=== PATIENT | female | born 1975 | race Caucasian/White ===

== ENCOUNTER → 2017-01-26 | Outpatient (CLI) | payer BC ==
[~2017-01-26] MED LIST: ALPR1TAB3 PO; CLX20 PO; NITR-5 PO
--- NOTE | 2017-01-30 14:57 | MAMMOGRAPHY REPORT ---
BILATERAL FIRST EVER DIGITAL SCREENING MAMMOGRAM WITH CAD: 01/26/2017 CLINICAL HISTORY: Patient presents for routine screening. S/P bilateral augmentation. TECHNIQUE: Current study was also evaluated with a Computer Aided Detection (CAD) system. Bilatera l CC and MLO views including implant displaced views were obtained. COMPARISON: No prior exams were available for comparison. BREAST COMPOSITION: The tissue of both breasts is heterogeneously dense, which may obscure small ma sses. FINDINGS: No suspicious masses, calcifications, or areas of architectural distortion are noted in e ither breast. Bilateral subpectoral saline implants are noted. IMPRESSION: ACR BI-RADS CATEGORY 1: NEGATIVE There is no mammographic evidence of malignancy. A 1 year screening mammogram is recommended. The p atient will receive written notification of the results. Approximately 10% of breast cancers are not detected with mammography. A negative mammographic repor t should not delay biopsy if a clinically suggestive mass is present. Guillermina Espinal M.D. ah/:01/26/2017 16:05:21 Psychiatric Therapist: Estelle SAMANO(Kunal)(Shania), [facility] letter sent: Normal 1/2 BI-RADS Code: ACR BI-RADS Category 1: Negative
== END | disposition home or self-care (01) ==
LOC: C.MAMM 15:11
PROVIDERS: ATTEND Internal Medicine
DX: Z12.31 Encounter for screening mammogram for malignant neoplasm of breast (principal); Z98.82 Breast implant status

== ENCOUNTER 2019-07-08 12:45 | Observation (INO) ==
[2019-07-08] MEDS ORDERED: SODIUM CHLORIDE 0.9% 1000ML 2,000 ML IV ONE (13:19)
[2019-07-08] MEDS ORDERED: MoRPHine SULFATE 4 MG/ML 1 ML CARP\\VIAL IV STA ×2 (13:19→16:15)
[2019-07-08] MEDS ORDERED: ACETAMINOPHEN 1,000 MG/100 ML VIAL IV STA (13:19)
[2019-07-08] MEDS ORDERED: FAMOTIDINE 20MG/5ML IV PUSH IV STA (13:19)
[2019-07-08] MEDS ORDERED: PROMETHAZINE HCL 6.25 MG in SODIUM CHLORIDE 0.9% 50 ML IV STA ×2 (13:19→16:15)
[2019-07-08] MEDS ORDERED: ONDANSETRON INJ 2 MG/ML 2 ML VIAL IV STA (13:19)
[2019-07-08] MEDS ORDERED: PROMETHAZINE 12.5 MG/50.5 ML NSS IV ONE (13:59)
[2019-07-08 14:04] LABS: Basophils # (auto) 0.03 K/uL (0-0.2); Basophils % (auto) 0.4 %; Eosinophils # (auto) 0.06 K/uL (0-0.5); Eosinophils % (auto) 0.7 %; Hematocrit (blood only) 30.3 % (37-47); Hemoglobin 10.2 g/dL (12.0-16.0); Immature Granulocytes # (auto) 0.01 K/uL (0.00-0.02); Immature Granulocytes % (auto) 0.1 %; Lymphocytes # (auto) 2.28 K/uL (1.2-3.4); Lymphocytes % (auto) 28.4 %; Mean Corpuscular Hemoglobin 28.8 pg (25-34); Mean Corpuscular Hgb Conc 33.7 g/dL (32-36); Mean Corpuscular Volume 85.6 fL (80-100); Mean Platelet Volume 8.7 fL (7.4-10.4); Monocytes # (auto) 0.35 K/uL (0.11-0.59); Monocytes % (auto) 4.4 %; Neutrophils # (auto) 5.31 K/uL (1.4-6.5); Platelet Count 345 K/uL (130-400); RDW Standard Deviation 43.8 fL (36.4-46.3); Red Blood Count 3.54 M/uL (4.2-5.4); White Blood Count 8.04 K/uL (4.8-10.8)
[2019-07-08 14:19] LABS: Albumin Level 3.5 gm/dl (3.4-5.0); BUN Creatinine Ratio 7.7 (10-20); Calcium 9.2 mg/dl (8.5-10.1); Creatinine Clr Calc Pharmacy 86.4 ml/min; Est GFR (African American) 102.4; Est GFR (Non-African American) 88.3; Potassium 3.8 mmol/L (3.5-5.1)
[2019-07-08 14:22] LABS: Albumin Globulin Ratio 0.9 (0.9-2); Bilirubin,Total 0.3 mg/dl (0.2-1); Globulin 4.1 gm/dl (2.5-4.0); Total Protein 7.6 gm/dl (6.4-8.2)
[2019-07-08 14:27] LABS: Appearance Urine Cloudy (Clear); Bacteria Urine Automated 2+ (Negative); Bilirubin Urine Negative (Negative); Blood Urine Negative (Negative); Cast Urine Automated 0 /lpf (0-5); Color Urine Yellow; Epithelial Cell Urine Auto >30 /lpf (0-5); Glucose Urine UA Negative (Negative); Ketones Urine Negative (Negative); Leukocyte Esterase Urine 2+ (Negative); Nitrite Urine Negative (Negative); Protein Urine Negative (Negative); RBC Urine Automated 0-4 /hpf (0-4); Specific Gravity Urine 1.006 (1.000-1.030); Urobilinogen Urine Negative (Negative); pH Urine 8.5 (4.5-7.5)
[2019-07-08 14:41] LABS: Pregnancy Test, Serum Negative (Negative)
[2019-07-08] MEDS ORDERED: IOVERSOL 100ml IV PRN (15:10)
[2019-07-08] MEDS ORDERED: SODIUM CHLORIDE 0.9% 1000ML 500 ML IV ONE (15:16)
--- NOTE | 2019-07-08 15:20 | CT Scan Report ---
CT abd pelvis IV con only CT DOSE: 413.14 mGy.cm HISTORY: Abdominal and pelvic pain poss divertic or colitis TECHNIQUE: Multiaxial CT images of the abdomen and pelvis were performed following the use of intrave nous contrast. A dose lowering technique was utilized adhering to the principles of ALARA. COMPARISON STUDY: 06/17/2018 FINDINGS: Lung bases remain clear. Small hepatic hemangiomas are unaltered. Kidneys enhance uniformly. No evidence for hydronephrosis. Nonobstructive bowel pattern. Several uterine fibroids. Bilateral ovarian cysts. The largest left ova shelby cyst measures 2.3 cm. There are several right ovarian cysts measuring up to 2.7 cm. There is tra ce amount of physiologic free fluid within the pelvis. Bladder is midline. IMPRESSION: 1. Bilateral ovarian cyst. 2. Otherwise negative abdomen and pelvis. 3. Several small uterine fibroids. The above report was generated using voice recognition software. It may contain grammatical, syntax or spelling errors. Electronically signed by: Martín Navarro M.D. 07/08/2019 3:18 PM
[2019-07-08] MEDS ORDERED: PANTOprazole 40 MG TAB PO STA (16:15)
[2019-07-08] MEDS ORDERED: PROMETHAZINE 6.25 MG/50.25 ML NSS IV ONE (16:20)
--- NOTE | 2019-07-08 17:52 | Emergency Department Note ---
Entered by Octavio Capellan acting as a scribe for History of Present Illness General Chief complaint: Dehydration Stated complaint: DEHYDRATION, SEVERE STOMACH PAIN Time Seen by Provider: 07/08/19 12:58 Source: patient History of Present Illness Provider complaint: abdominal pain Onset (ago): day(s) 3 Location: abdomen Radiation: non-radiation Pain Consistency: + constant Maximum Pain Intensity: 8 Relieved By: + none Associated symptoms: + denies other symptoms, + nausea/vomiting and + other (dehydarted, no diarrhea) Treatments prior to arrival: other (Zofran) The patient is a 44 y/o female who presents to the emergency department for evaluation of constant abdominal pain for the past three days. The patient states that she has been nauseated, unable to eat, and aches. She reports that she does not feel like she can eat without vomiting and that if she goes to the restroom she will throw up from the abdominal pain. The patient report she was here 3 days ago with vomiting and diarrhea and was discharged with a possible kidney stone. Since then the patient states that the vomiting and diarrhea are not as bad but the abdominal pain and nausea are much wore. She reports she has only took Zofran at home because she cannot keep anything down and she feels dehydrated. The patient reports she does have a history of kidney stones. The patient denies urinary symptoms, and any other symptoms. Home Medications Home Medications Medication Instructions Recorded Confirmed Type alprazolam 0.5 mg tablet 0.5 mg PO BID PRN #60 tab 06/10/19 07/08/19 Rx ondansetron 4 - 8 mg PO Q8H PRN #14 tab 07/05/19 07/08/19 Rx escitalopram oxalate 10 mg PO QAM 07/08/19 07/08/19 History escitalopram oxalate 20 mg PO QAM 07/08/19 07/08/19 History levothyroxine [Tirosint] 13 mcg PO QAM 07/08/19 07/08/19 History zolpidem 12.5 mg PO DAILY PRN 07/08/19 07/08/19 History Allergies Allergy/AdvReac Type Severity Reaction Status Date / Time Sulfa (Sulfonamide Allergy Severe EYES SWELL Verified 07/08/19 14:28 Antibiotics) Penicillins Allergy Intermediate Hives Verified 07/08/19 14:28 nitrofurantoin AdvReac Intermediate hives Verified 07/08/19 14:28 Past Med/Surg History Medical History Anxiety Hyperglycemia (Resolved) Insomnia (Acute) Nephrolithiasis (Acute) Vitamin B12 deficiency (Acute) Kidney stones Surgical History H/O oral surgery History of lithotripsy Family History Mother Breast cancer Hypertension Dyslipidemia Grandmother (Maternal) Breast cancer Hypertension Dyslipidemia Father Hypertension Kidney stones Grandfather Kidney stones Grandmother (Paternal) Hypertension Dyslipidemia Grandfather (Maternal) Hypertension Dyslipidemia Grandfather (Paternal) Hypertension Dyslipidemia Social History Preferred Language: Swedish Communication Ability: Effective Detective Bureau Chief Required: No Beliefs That Will Affect Care: None Current Living Situation: Spouse Current Living Situation Comment: current occupational status: employed Other Information That Helps Us Care for You: No Feels Safe at Home: Yes Safety Concerns: Feels Safe At This Time Smoking Status: Never smoker Hx Alcohol Use: No Hx Substance Use: No caffeine: Yes Dental Care, Regularly: Yes Seatbelt Use: always Review of Systems See HPI for pertinent positives & negatives. and A total of 10 systems reviewed and were otherwise negative Physical Exam Vital Signs Vital Signs - 24 hr 07/08/19 14:14 07/08/19 15:30 07/08/19 16:04 Pulse Rate [Left Finger] 68 68 68 Respiratory Rate 16 16 16 Respiratory Effort / Characteristics Non-Labored Spontaneous Non-Labored Spontaneous Non-Labored Spontaneous Respiratory Depth Normal Normal Normal Blood Pressure [Left Arm] 128/81 138/83 138/85 Blood Pressure Mean [Left Arm] 96 101 102 Blood Pressure Position [Left Arm] Lying Lying Pulse Oximetry 97 97 97 Oxygen Delivery Method Room Air Room Air 07/08/19 16:38 07/08/19 17:00 07/08/19 17:30 Pulse Rate [Left Finger] 68 66 60 Respiratory Rate 16 16 16 Respiratory Effort / Characteristics Non-Labored Spontaneous Non-Labored Spontaneous Non-Labored Spontaneous Respiratory Depth Normal Normal Normal Blood Pressure [Left Arm] 153/85 H 168/87 H 148/86 H Blood Pressure Mean [Left Arm] 107 114 106 Blood Pressure Position [Left Arm] Lying Lying Lying Pulse Oximetry 99 99 99 Oxygen Delivery Method Room Air Room Air Room Air 07/08/19 18:13 Pulse Rate [Left Finger] 67 Respiratory Rate 16 Respiratory Effort / Characteristics Non-Labored Spontaneous Respiratory Depth Normal Blood Pressure [Left Arm] 138/85 Blood Pressure Mean [Left Arm] 102 Blood Pressure Position [Left Arm] Lying Pulse Oximetry 99 Oxygen Delivery Method Room Air GENERAL: Patient is in no acute distress. HEENT: No acute trauma, normocephalic atraumatic, mucous membranes dry, no nasal congestion, no scleral icterus. NECK: No stridor, no adenopathy, no meningismus, trachea is midline. LUNGS: Clear to auscultation bilaterally, no wheeze, no rhonchi, breath sounds equal. HEART: Without murmurs gallops or rubs, regular rate and rhythm. ABDOMEN: Soft, diffusely moderately tender, bowel sounds positive, no hernias, no peritonitis. EXTREMITIES: No cyanosis or edema, full range of motion of all the joints without pain or difficulty, no signs for acute trauma. NEUROLOGIC: Oriented x 3, no acute motor or sensory deficits, no focal weakness. SKIN: No rash, no jaundice, no diaphoresis. Course 1315: Past medical records reviewed. The patient was evaluated in room A11B. A complete history and physical exam was performed. 1610: A rectal exam as preformed with a female sign artist. Results were hem- negative. She will try to have some isaias julian and crackers. 1700: I spoke with the patient and updated her on her results. The patient did poorly with oral intake. 1705: I spoke Dr. Adams [facility] hospitalist. She will evaluate for further management. Administered Medications Acetaminophen (Tylenol) 650 mg PO Q4H PRN PRN Reason: Pain or Fever Stop: 08/07/19 20:32 Last Admin: 07/08/19 21:08 Dose: 650 mg Documented by: [id number] Escitalopram Oxalate (Lexapro Tab) 10 mg PO QAM [facility] Stop: 08/08/19 08:59 Last Admin: 07/09/19 08:21 Dose: 10 mg Documented by: [id number] Escitalopram Oxalate (Lexapro Tab) 20 mg PO QAM [facility] Stop: 08/08/19 08:59 Last Admin: 07/09/19 08:21 Dose: 20 mg Documented by: [id number] Hydromorphone HCl (Dilaudid) 0.5 mg IV Q3H PRN PRN Reason: Pain Stop: 07/22/19 20:32 Last Admin: 07/08/19 21:08 Dose: 0.5 mg Documented by: [id number] Lactated Ringer's (Lr) 1,000 mls @ 80 mls/hr IV .[id number] ERWIN Stop: 07/09/19 20:59 Last Admin: 07/09/19 08:19 Dose: 80 mls/hr Documented by: [id number] Infusion: 07/09/19 08:15 Dose: 0 mls/hr Documented by: [id number] Infusion: 07/09/19 06:19 Dose: 80 mls/hr Documented by: [id number] Admin: 07/08/19 19:44 Dose: 80 mls/hr Documented by: [id number] Ioversol (Optiray 320 100ml) 93 ml IV ONCE PRN PRN Reason: Interaction Checking Stop: 07/12/19 15:09 Last Admin: 07/08/19 15:10 Dose: 93 ml Documented by: [id number] Ketorolac Tromethamine (Toradol) 15 mg IV Q6H PRN PRN Reason: Pain Stop: 07/13/19 20:34 Last Admin: 07/08/19 23:40 Dose: 15 mg Documented by: [id number] Levothyroxine Sodium (Tirosint) 1 ea PO DAILYBB ERWIN Stop: 08/08/19 10:14 Last Admin: 07/09/19 10:19 Dose: 1 ea Documented by: [id number] Zolpidem Tartrate (Ambien) 10 mg PO DAILY PRN PRN Reason: insomnia Stop: 08/07/19 21:07 Last Admin: 07/08/19 23:42 Dose: 10 mg Documented by: [id number] Discontinued Medications Famotidine (Pepcid 20mg Iv Push) 20 mg IV ONE STA Stop: 07/08/19 13:20 Last Admin: 07/08/19 14:07 Dose: 20 mg Documented by: [id number] Acetaminophen (Ofirmev) 1,000 mg in 100 mls @ 400 mls/hr IV NOW STA Stop: 07/08/19 13:33 Last Infusion: 07/08/19 14:23 Dose: 0 mls/hr Documented by: [id number] Admin: 07/08/19 14:06 Dose: 400 mls/hr Documented by: [id number] Promethazine HCl 6.25 mg/ (Sodium Chloride) 50.25 mls @ 201 mls/hr IV NOW STA Stop: 07/08/19 13:33 Last Infusion: 07/08/19 14:23 Dose: 0 mls/hr Documented by: [id number] Admin: 07/08/19 14:07 Dose: 201 mls/hr Documented by: [id number] Sodium Chloride (Nss 1000ml) 2,000 mls @ 999 mls/hr IV .Q2H1M ONE Stop: 07/08/19 15:19 Last Infusion: 07/08/19 18:14 Dose: 0 mls/hr Documented by: [id number] Admin: 07/08/19 14:08 Dose: 999 mls/hr Documented by: [id number] Sodium Chloride (Nss 1000ml) 500 mls @ 999 mls/hr IV .Q31M ONE Stop: 07/08/19 15:46 Last Infusion: 07/08/19 15:47 Dose: 0 mls/hr Documented by: [id number] Admin: 07/08/19 15:16 Dose: 999 mls/hr Documented by: [id number] Promethazine HCl 6.25 mg/ (Sodium Chloride) 50.25 mls @ 201 mls/hr IV NOW STA Stop: 07/08/19 16:29 Last Admin: 07/08/19 16:23 Dose: Not Given Documented by: [id number] Miscellaneous (Order Awaiting Action) 1 ea N/A QS ERWIN Stop: 08/08/19 00:00 Last Admin: 07/09/19 10:21 Dose: Not Given Documented by: [id number] Admin: 07/08/19 23:41 Dose: Not Given Documented by: [id number] Morphine Sulfate (Morphine Sulfate) 4 mg IV NOW STA Stop: 07/08/19 13:20 Last Admin: 07/08/19 14:07 Dose: 4 mg Documented by: [id number] Morphine Sulfate (Morphine Sulfate) 4 mg IV NOW STA Stop: 07/08/19 16:16 Last Admin: 07/08/19 16:23 Dose: 4 mg Documented by: [id number] Ondansetron HCl (Zofran) 4 mg IV NOW STA Stop: 07/08/19 13:20 Last Admin: 07/08/19 14:07 Dose: 4 mg Documented by: [id number] Pantoprazole Sodium (Protonix) 40 mg PO NOW STA Stop: 07/08/19 16:16 Last Admin: 07/08/19 16:22 Dose: 40 mg Documented by: [id number] Promethazine HCl (Phenergan) Confirm Administered Dose 12.5 mg IV .STK-MED ONE Stop: 07/08/19 14:00 Last Admin: 07/08/19 14:18 Dose: Not Given Documented by: [id number] Promethazine HCl (Phenergan) Confirm Administered Dose 6.25 mg IV .STK-MED ONE Stop: 07/08/19 16:21 Last Admin: 07/08/19 16:23 Dose: 6.25 mg Documented by: [id number] Medical Decision Making Differential Diagnosis Differential diagnosis: Diverticulitis, dehydration, pancreatitis, appendicitis, UTI, electrolyte imbalance, viral illness, food borne illness. Medical Records Attestation: I reviewed the patient's medical records. Home Medications Current Medication List: was personally reviewed by me Laboratory Data Attestation: I reviewed the patient's lab results. Result diagrams: 07/09/19 06:19 07/09/19 06:19 Lab Results 07/08/19 07/08/19 07/08/19 Range/Units 13:53 13:53 13:53 WBC 8.04 (4.8-10.8) K/uL RBC 3.54 L (4.2-5.4) M/uL Hgb 10.2 L (12.0-16.0) g/dL Hct 30.3 L (37-47) % MCV 85.6 (80-100) fL MCH 28.8 (25-34) pg MCHC 33.7 (32-36) g/dL RDW Std Deviation 43.8 (36.4-46.3) fL RDW Coeff of Solo 14.0 (11.5-14.5) % Plt Count 345 (130-400) K/uL MPV 8.7 (7.4-10.4) fL Immature Gran % (Auto) 0.1 % Neut % (Auto) 66.0 % Lymph % (Auto) 28.4 % [place] % (Auto) 4.4 % Eos % (Auto) 0.7 % Baso % (Auto) 0.4 % Immature Gran # (Auto) 0.01 (0.00-0.02) K/uL Neut # (Auto) 5.31 (1.4-6.5) K/uL Lymph # (Auto) 2.28 (1.2-3.4) K/uL [place] # (Auto) 0.35 (0.11-0.59) K/uL Eos # (Auto) 0.06 (0-0.5) K/uL Baso # (Auto) 0.03 (0-0.2) K/uL Sodium 139 (136-145) mmol/L Potassium 3.8 (3.5-5.1) mmol/L Chloride 108 H (98-107) mmol/L Carbon Dioxide 26 (21-32) mmol/L Anion Gap 6.0 (3-11) BUN 6 L (7-18) mg/dl Creatinine 0.81 (0.6-1.2) mg/dl Est Cr Clr Drug Dosing 86.4 ml/min Est GFR ( Amer) 102.4 Est GFR (Non-Af Amer) 88.3 BUN/Creatinine Ratio 7.7 L (10-20) Glucose 97 (70-99) mg/dl Calcium 9.2 (8.5-10.1) mg/dl Total Bilirubin 0.3 (0.2-1) mg/dl AST 23 (15-37) U/L ALT 26 (12-78) U/L Alkaline Phosphatase 121 H (45-117) U/L Total Protein 7.6 (6.4-8.2) gm/dl Albumin 3.5 (3.4-5.0) gm/dl Globulin 4.1 H (2.5-4.0) gm/dl Albumin/Globulin Ratio 0.9 (0.9-2) Lipase 85 (73-393) U/L HCG, Qual Negative (Negative) Urine Color Urine Appearance (Clear) Urine pH (4.5-7.5) Ur Specific [place] (1.000-1.030) Urine Protein (Negative) Urine Glucose (UA) (Negative) Urine Ketones (Negative) Urine Blood (Negative) Urine Nitrite (Negative) Urine Bilirubin (Negative) Urine Urobilinogen (Negative) Ur Leukocyte Esterase (Negative) Urine WBC (Auto) (0-5) /hpf Urine RBC (Auto) (0-4) /hpf U Hyaline Cast (Auto) (0-5) /lpf U Epithel Cells (Auto) (0-5) /lpf Urine Bacteria (Auto) (Negative) 07/08/19 Range/Units 14:00 WBC (4.8-10.8) K/uL RBC (4.2-5.4) M/uL Hgb (12.0-16.0) g/dL Hct (37-47) % MCV (80-100) fL MCH (25-34) pg MCHC (32-36) g/dL RDW Std Deviation (36.4-46.3) fL RDW Coeff of Solo (11.5-14.5) % Plt Count (130-400) K/uL MPV (7.4-10.4) fL Immature Gran % (Auto) % Neut % (Auto) % Lymph % (Auto) % [place] % (Auto) % Eos % (Auto) % Baso % (Auto) % Immature Gran # (Auto) (0.00-0.02) K/uL Neut # (Auto) (1.4-6.5) K/uL Lymph # (Auto) (1.2-3.4) K/uL [place] # (Auto) (0.11-0.59) K/uL Eos # (Auto) (0-0.5) K/uL Baso # (Auto) (0-0.2) K/uL Sodium (136-145) mmol/L Potassium (3.5-5.1) mmol/L Chloride (98-107) mmol/L Carbon Dioxide (21-32) mmol/L Anion Gap (3-11) BUN (7-18) mg/dl Creatinine (0.6-1.2) mg/dl Est Cr Clr Drug Dosing ml/min Est GFR ( Amer) Est GFR (Non-Af Amer) BUN/Creatinine Ratio (10-20) Glucose (70-99) mg/dl Calcium (8.5-10.1) mg/dl Total Bilirubin (0.2-1) mg/dl AST (15-37) U/L ALT (12-78) U/L Alkaline Phosphatase (45-117) U/L Total Protein (6.4-8.2) gm/dl Albumin (3.4-5.0) gm/dl Globulin (2.5-4.0) gm/dl Albumin/Globulin Ratio (0.9-2) Lipase (73-393) U/L HCG, Qual (Negative) Urine Color Yellow Urine Appearance Cloudy A (Clear) Urine pH 8.5 H (4.5-7.5) Ur Specific [place] 1.006 (1.000-1.030) Urine Protein Negative (Negative) Urine Glucose (UA) Negative (Negative) Urine Ketones Negative (Negative) Urine Blood Negative (Negative) Urine Nitrite Negative (Negative) Urine Bilirubin Negative (Negative) Urine Urobilinogen Negative (Negative) Ur Leukocyte Esterase 2+ H (Negative) Urine WBC (Auto) 10-30 H (0-5) /hpf Urine RBC (Auto) 0-4 (0-4) /hpf U Hyaline Cast (Auto) 0 (0-5) /lpf U Epithel Cells (Auto) >30 H (0-5) /lpf Urine Bacteria (Auto) 2+ H (Negative) Imaging Data Radiologist's Impression: Radiology results as stated below per my review and the radiologist's interpretation: CT abd pelvis IV con only CT DOSE: 413.14 mGy.cm HISTORY: Abdominal and pelvic pain poss divertic or colitis TECHNIQUE: Multiaxial CT images of the abdomen and pelvis were performed following the use of intravenous contrast. A dose lowering technique was utilized adhering to the principles of ALARA. COMPARISON STUDY: 06/17/2018 FINDINGS: Lung bases remain clear. Small hepatic hemangiomas are unaltered. Kidneys enhance uniformly. No evidence for hydronephrosis. Nonobstructive bowel pattern. Several uterine fibroids. Bilateral ovarian cysts. The largest left ovarian cyst measures 2.3 cm. There are several right ovarian cysts measuring up to 2.7 cm. There is trace amount of physiologic free fluid within the pelvis. Bladder is midline. IMPRESSION: 1. Bilateral ovarian cyst. 2. Otherwise negative abdomen and pelvis. 3. Several small uterine fibroids. The above report was generated using voice recognition software. It may contain grammatical, syntax or spelling errors. Electronically signed by: Martín Navarro M.D. 07/08/2019 3:18 PM Blood Pressure Blood Pressure Findings: Elevated blood pressure Blood Pressure Disposition: further management by hospitalist [facility] Narrative There is no leukocytosis. The patient is anemic, this is about a two-point drop for her. The cause is unclear. I did perform a rectal exam while here in the ED, the stool seemed heme negative. There was no significant electrolyte abnormality, no evidence for liver enzyme elevation. No evidence for pancreatitis. testing was negative. Urinalysis shows some contamination, no signs of infection. Abdominal and pelvis CT does not show any evidence for diverticulitis or bowel obstruction, no acute surgical process by CT scan. The patient received IV morphine for pain, IV Zofran for nausea. She was given IV Phenergan as well for nausea. She received IV saline, IV Pepcid and IV Tylenol. Patient was given oral Protonix. The patient has been here for several hours. She is still having nausea and epigastric abdominal pain. She did attempt to take something by mouth but did poorly. I do think a hospital stay is warranted. The cause for this entire presentation is unclear. She has though dropped her hemoglobin by 2 points and so, upper GI bleeding and gastritis is a concern. I did speak with the patient, the on-call hospitalist was consulted. Case management has been involved. Impression & Plan Abdominal pain, epigastric, Dehydration, Vomiting, Anemia, Failure of outpatient treatment Discharge Plan Visit Data *Final* Discharge Date/Time: 07/08/19 19:02 Chief Complaint: Dehydration Stated Complaint: DEHYDRATION, SEVERE STOMACH PAIN ED Provider: Scar Fregoso Discharge Problem: Abdominal pain, epigastric, Dehydration, Vomiting, Anemia, Failure of outpatient treatment Patient Disposition: Admitted As Inpatient Discharge Instructions Interventions: ED Discharge Assessment Last Done: 07/08/19 19:02 Discharge Problem: Vomiting Qualifiers: Vomiting type: unspecified Vomiting Intractability: non-intractable Nausea presence: with nausea Qualified Code(s): R11.2 - Nausea with vomiting, unspecified Anemia Qualifiers: Anemia type: unspecified type Qualified Code(s): D64.9 - Anemia, unspecified The scribe's documentation has been prepared under my direction and personally reviewed by me in its entirety. I confirm that the note above accurately reflects all work, treatment, procedures, and medical decision making performed by me.
--- NOTE | 2019-07-08 18:04 | History & Physical Report ---
Date of Service July 08, 2019 Assessment & Plan (1) Early satiety: 44-year-old female with significant history of weight gain over the past 6 months, concern over gastroparesis perhaps a diabetic origin. Will obtain an A1c in a.m. Will admit patient under observation. Will place on IV fluids lactic ringer 80 mL's per hour. Concern over possible gastro paresis. (2) Abdominal pain, epigastric: Patient is vague in regards to her abdomial pain. It sounds more like abdominal fullness, however her exam is somewhat tender. Perhaps she may have some gastritis or an ulcer. May require upper endoscopy. At this point, given that patient was recently seen in the ER and returned, doubt we can take outpatient route and will need to have her admitted under obs. Her fullness could perhaps be from gastroparesis. She may have undiagnosed diabetes. will monitor. (3) Anemia: Hemoglobin has been gradually decreasing. Patient has not had any dark stools, or blood in her stools. will obtain iron studies in the AM. (4) Nausea vomiting and diarrhea: Diarrhea has subsided. She has not had any recent antibiotics. Given that it has improved recently, doubt bacterial overgrowth, doubt c. diff. will monitor. (5) Migraine variants: H/O migraines. currently not complaiing of one. will monitor (6) Nephrolithiasis: (7) Weight gain: concern over possibility of undiagnosed diabetes. will monitor. (8) Hypothyroidism: continue levothyroxine (9) Acute kidney injury: despite having a normal creatinine, her gfr and creatinine cleaance is lower than normal. will likely benefit from IVF. will monitor. will not place on DVT proph as patient will likely be here for a short stay History of Present Illness Chief Complaint: Early satiety/ dehydration. Primary Care Provider: Daiana Meyer MD This is a pleasant 44 yo [id number] female with past medical history of anxiety comes into the ER with nonspecific symptoms of early satiety, abdominal discomfort in epigastric epigastric region nausea vomiting and diarrhea for the past 2 to 3 weeks but has worsened since Sunday. Patient attributes the worsening of her nausea vomiting diarrhea from having Salad at sheets this past Sunday. Patient went to the ER on 07/05 for nausea vomiting diarrhea and she felt that she was dehydrated. During that visit, labs were drawn and patient did not have any significant signs of acute renal failure at the time. Patient was discharged to home with albumin admitted. Patient reports though that her nausea continues and she is having this Doll epigastric abdominal pain which is mild to moderate in intensity. Patient is unsure exclty when he abdominal pain began, she describes it as a dull sensation in epigastric region and it is related with eating and feeling full. It subsides a few hours later. She reports no significant alleviating factors. She also reports having early satiety. She states she has no appetite. Over the course of the weekend, her diarrhea appears to have subsided. Review of systems patient reports weight gain of about 50 pounds over the past 6 weeks. Allergies Allergy/AdvReac Type Severity Reaction Status Date / Time Sulfa (Sulfonamide Allergy Severe EYES SWELL Verified 07/08/19 14:28 Antibiotics) Penicillins Allergy Intermediate Hives Verified 07/08/19 14:28 nitrofurantoin AdvReac Intermediate hives Verified 07/08/19 14:28 Home Medications Home Medications Medication Instructions Recorded Confirmed Type alprazolam 0.5 mg tablet 0.5 mg PO BID PRN #60 tab 06/10/19 07/08/19 Rx ondansetron 4 - 8 mg PO Q8H PRN #14 tab 07/05/19 07/08/19 Rx escitalopram oxalate 10 mg PO QAM 07/08/19 07/08/19 History escitalopram oxalate 20 mg PO QAM 07/08/19 07/08/19 History levothyroxine [Tirosint] 13 mcg PO QAM 07/08/19 07/08/19 History zolpidem 12.5 mg PO DAILY PRN 07/08/19 07/08/19 History Past Med/Surg History Medical History Anxiety Hyperglycemia (Resolved) Insomnia (Acute) Nephrolithiasis (Acute) Vitamin B12 deficiency (Acute) Kidney stones Surgical History H/O oral surgery History of lithotripsy Family History Mother Breast cancer Hypertension Dyslipidemia Grandmother (Maternal) Breast cancer Hypertension Dyslipidemia Father Hypertension Kidney stones Grandfather Kidney stones Grandmother (Paternal) Hypertension Dyslipidemia Grandfather (Maternal) Hypertension Dyslipidemia Grandfather (Paternal) Hypertension Dyslipidemia Social History Preferred Language: Faroese Communication Ability: Effective Terminal Superintendent Required: No Beliefs That Will Affect Care: None Current Living Situation: Spouse Current Living Situation Comment: current occupational status: employed Other Information That Helps Us Care for You: No Feels Safe at Home: Yes Safety Concerns: Feels Safe At This Time Smoking Status: Never smoker Hx Alcohol Use: No Hx Substance Use: No caffeine: Yes Dental Care, Regularly: Yes Seatbelt Use: always Review of Systems Constitutional: + sweats and + weight gain (gained 50 pounds in past 6 months) Eyes: no blind spots and no discharge Ear, Nose, Mouth, Throat: no tinnitus and no dizziness Respiratory: no cough and no dyspnea Cardiovascular: no chest pain and no radiating jaw, neck or arm pain Gastrointestinal: + abdominal pain and + early satiety Genitourinary: no urinary frequency and no urinary incontinence Integumentary: no acne and no lesions Neurologic: no gait abnormality Psychiatric: + anxiety; no suicidal ideation and no panic attacks Endocrine: no polydipsia and no polyphagia Hematologic / Lymphatic: no easy bleeding and no lymphadenopathy Physical Exam 2 Constitutional: WD/WN, vitals as above well developed and well nourished Eyes: PERRL, conjunctivae normal, anicteric sclerae ENMT: external ear and nose normal, oropharynx normal Neck: trachea midline, no thyromegaly Respiratory: normal respiratory effort, lungs clear to auscultation Cardiovascular: RRR, no murmur, no edema Gastrointestinal (Abdomen): normal bowel sounds, soft, nontender, no hepatosplenomegaly (except to the epigastric region) Skin: no rashes, warm and dry Neurologic: moves all extremities and awake Psychiatric: A+Ox3, euthymic affect Results & Data Vital Signs (Past 12 Hours) Vital Signs Temp Pulse Pulse Resp BP BP Pulse Ox 07/08/19 16:38 68 16 153/85 H 99 07/08/19 16:04 68 16 138/85 97 07/08/19 15:30 68 16 138/83 97 07/08/19 14:14 68 16 128/81 97 07/08/19 12:48 36.7 C 74 18 161/93 H 99 PG Care Time/CCT Total # of Minutes Spent Total Time Spent with Patient: Total time spent is greater than 50% in coordination of care (as documented) at patient's floor/unit and/or counseling patient: (1) Anemia Anemia type: unspecified type Qualified Code(s): D64.9 - Anemia, unspecified
[2019-07-08] MEDS ORDERED: ALPRAZolam 0.5 MG TABLET PO PRN (18:26)
[2019-07-08] MEDS: LACTATED RINGER'S 1,000 ML IV SCH (19:44)
[2019-07-08] MEDS ORDERED: HYDROmorphone INJ 0.5 MG/0.5 ML SYR IV PRN (20:33)
[2019-07-08] MEDS ORDERED: ACETAMINOPHEN 325 MG TAB PO PRN (20:33)
[2019-07-08] MEDS ORDERED: ONDANSETRON INJ 2 MG/ML 2 ML VIAL IV PRN (20:33)
[2019-07-08] MEDS ORDERED: KETOROLAC TROMETHAMINE 15 MG/ML VIAL IV PRN (20:35)
[2019-07-08] MEDS ORDERED: ZOLPIDEM TARTRATE 10 MG TAB PO PRN (21:08)
[2019-07-08] MEDS: [UNRECOGNIZED DRUG - OTHER] SCH (23:41)
[2019-07-09 06:56] LABS: Hematocrit (blood only) 31.4 % (37-47); Hemoglobin 10.4 g/dL (12.0-16.0); Mean Corpuscular Hemoglobin 29.1 pg (25-34); Mean Corpuscular Hgb Conc 33.1 g/dL (32-36); Mean Corpuscular Volume 87.7 fL (80-100); Platelet Count 243 K/uL (130-400); RDW Coefficient of Variation 14.6 % (11.5-14.5); RDW Standard Deviation 46.8 fL (36.4-46.3); Red Blood Count 3.58 M/uL (4.2-5.4); White Blood Count 4.68 K/uL (4.8-10.8)
[2019-07-09 07:26] LABS: BUN Creatinine Ratio 9.7 (10-20); Calcium 8.8 mg/dl (8.5-10.1); Creatinine Clr Calc Pharmacy 89.8 ml/min; Est GFR (African American) 107.2; Est GFR (Non-African American) 92.5; Potassium 3.7 mmol/L (3.5-5.1)
[2019-07-09] MEDS: [UNRECOGNIZED DRUG - OTHER] SCH ×2 (08:15→10:21)
[2019-07-09] MEDS: LACTATED RINGER'S 1,000 ML IV SCH (08:19)
[2019-07-09] MEDS ORDERED: ESCITALOPRAM OXALATE 20 MG TAB PO SCH (09:00)
[2019-07-09] MEDS ORDERED: ESCITALOPRAM OXALATE 10 MG TAB PO SCH (09:00)
[2019-07-09 09:50] LABS: Estimated Average Glucose 111 mg/dl; Hemoglobin A1C 5.5 % (4.5-5.6)
[2019-07-09] MEDS ORDERED: TIROSINT 13 MCG PO SCH (10:15)
[2019-07-09 12:52] LABS: Alanine Aminotransferase 21 U/L (12-78); Albumin Level 2.8 gm/dl (3.4-5.0); Alkaline Phosphatase 94 U/L (45-117); Aspartate Aminotransferase 18 U/L (15-37); Bilirubin Direct < 0.1 mg/dl (0-0.2); Bilirubin,Total 0.3 mg/dl (0.2-1); Total Protein 6.2 gm/dl (6.4-8.2)
== END 2019-07-09 15:18 | disposition home or self-care (01) ==
LOC: 3W 12:45 → ED 12:45 → 3W 19:02

== ENCOUNTER 2022-06-09 14:48 | Inpatient (IN) ==
[2022-06-09 17:08] LABS: Basophils # (auto) 0.05 K/uL (0-0.2); Basophils % (auto) 0.7 %; Eosinophils # (auto) 0.04 K/uL (0-0.50); Eosinophils % (auto) 0.6 %; Hematocrit (blood only) 37.9 % (34.1-44.9); Hemoglobin 12.5 g/dl (12.0-16.0); Immature Granulocytes # (auto) 0.01 K/uL (0.00-0.02); Immature Granulocytes % (auto) 0.1 %; Lymphocytes # (auto) 1.43 K/uL (1.2-3.4); Lymphocytes % (auto) 20.8 %; Mean Corpuscular Hemoglobin 27.9 pg (25.0-34.0); Mean Corpuscular Volume 84.6 fL (80.0-100.0); Mean Platelet Volume 9.1 fL (9.4-12.3); Monocytes # (auto) 0.34 K/uL (0.24-0.82); Neutrophils # (auto) 4.99 K/uL (1.4-6.5); Neutrophils % (auto) 72.8 %; Platelet Count 396 K/uL (130-400); RDW Coefficient of Variation 13.8 % (11.5-14.5); RDW Standard Deviation 42.5 fL (36.4-46.3); Red Blood Count 4.48 M/uL (3.93-5.22); White Blood Count 6.86 K/ul (4.8-10.8)
[2022-06-09 17:27] LABS: Albumin Globulin Ratio 1.1 (0.9-2); Albumin Level 3.8 gm/dl (3.4-5.0); Bilirubin,Total 0.8 mg/dl (0.2-1.0); Calcium 9.5 mg/dl (8.5-10.1); Est GFR (Non-African American) 94.9 ml/min; Globulin 3.6 gm/dl (2.5-4.0); Potassium 4.1 mmol/L (3.5-5.1); Total Protein 7.4 gm/dl (6.0-8.3)
[2022-06-09 17:49] LABS: Appearance Urine Cloudy (Clear); Bacteria Urine Automated Negative (Negative); Bilirubin Urine Negative (Negative); Blood Urine Trace (Negative); Color Urine Yellow; Epithelial Cell Urine Auto >30 /lpf (0-5); Glucose Urine UA Negative (Negative); Ketones Urine Negative (Negative); Leukocyte Esterase Urine Negative (Negative); Nitrite Urine Negative (Negative); Protein Urine Negative (Negative); RBC Urine Automated 0-4 /hpf (0-4); Urobilinogen Urine Negative (Negative); pH Urine 8.5 (4.5-7.5)
[2022-06-09] MEDS ORDERED: HYDROmorphone INJ 0.5 MG/0.5 ML SYR IV STA (18:01)
[2022-06-09] MEDS ORDERED: ONDANSETRON INJ 2 MG/ML 2 ML VIAL IV STA (18:01)
[2022-06-09] MEDS ORDERED: SODIUM CHLORIDE 0.9% 1000ML 1,000 ML IV ONE (18:01)
--- NOTE | 2022-06-09 20:13 | Ultrasound Report ---
US gallbladder HISTORY: 47 years-old Female Epigastric pain . Acute generalized abdominal pain with nausea COMPARISON: CT abdomen and pelvis 05/08/2021 TECHNIQUE: Multiple real-time sonographic images of the abdominal right upper quadrant were obtained assessing grayscale appearance and color flow FINDINGS: The visualized pancreas is unremarkable. The liver measures up to 18 cm in length. 1.6 x 1.7 x 1.8 cm hyperechoic focus within the right hepatic lobe suggestive of a hemangioma, stable from prior. Paten t portal vein. Cholelithiasis with mild gallbladder wall thickening measuring up to 4 mm. No significant gallbladder distention. Gallstones are also noted within the gallbladder neck. No pericholecystic fluid. Sonogra phic Reyes sign cannot be obtained secondary to recent pain medication administered to the patient. Normal common bile duct, 5 mm. Calculi of the right kidney without hydronephrosis measuring up to approximately 4 mm. IMPRESSION: 1. Cholelithiasis with nonspecific gallbladder wall thickening. Findings are equivocal for acute chol ecystitis. Findings could be correlated with nuclear medicine hepatobiliary scan. 2. No biliary ductal dilation. 3. Right nephrolithiasis without hydronephrosis. ACT 112: Negative or not required by law. The above report was generated using voice recognition software. It may contain grammatical, syntax o r spelling errors. Electronically signed by: Jose Rutledge M.D. 06/09/2022 8:12 PM
--- NOTE | 2022-06-09 20:19 | Emergency Department Note ---
Impression & Plan Acute cholecystitis, Elevated LFTs ED Provider Note CHIEF COMPLAINT: Abdominal pain HISTORY OF PRESENT ILLNESS: This 47-year-old female patient presents to the emergency department with complaints of epigastric abdominal pain that began earlier this afternoon. The patient states it was a severe pain that would not let up. The pain radiated up into the chest and through to the back. She tried multiple different positions without benefit. She thought maybe she had to throw up but it did not occur. Patient states she has had pain intermittently in this location in the past but nothing was found when she presented to her physician. Patient has a history of kidney stones but this feels differently. She states she does have a history of irregular bowel movements. She states that usually is just not on a consistent schedule. She does complain of abdominal bloating. Currently the pain is slightly better than it was previously but she does complain of diffuse abdominal discomfort, worse in the epigastric region. She denies fevers, chills, chest pain currently. REVIEW OF SYSTEMS: A review of systems was performed with positives and pertinent negatives listed in the history of present illness. 10 systems were reviewed and are otherwise negative. ALLERGIES: see below MEDICATIONS: see below PMH: see below SOCIAL HISTORY: see below DDx: Appendicitis, ovarian cyst, ovarian torsion, ectopic , TOA, PID, infections, diverticulitis, UTI, obstruction, mesenteric ischemia, aortic pathology, inflammatory bowel disease, renal colic, PUD, pancreatitis, biliary pathology, hernia, volvulus, constipation, as well as other pathologies. PHYSICAL EXAM: Vital signs reviewed. General: Well-appearing 47-year-old female, in no significant distress. HEENT: No scleral icterus, PERRLA, neck supple. Atraumatic. Cardiovascular: Regular rate and rhythm, no extra sounds. Pulmonary: Clear to auscultation bilaterally, normal work of breathing. Abdomen: Soft, tender to palpation in the epigastric region, moderately distended, positive bowel sounds. No tympany to percussion. Musculoskeletal: Atraumatic, no peripheral edema. Neurologic: Patient awake alert and oriented x 3, speech is clear Skin: Warm, dry, no rash EMERGENCY DEPARTMENT COURSE/MDM: This patient was evaluated and appeared to be in some discomfort. IV access was obtained and laboratory work was drawn. The patient was medicated with IV Dilaudid and Zofran. Patient was hydrated with normal saline solution. Laboratory work reveals a normal WBC but elevated AST, ALT and alk phos. Ultrasound of the right upper quadrant was performed and reveals a mild cholecystitis. I did discuss the findings with Dr. Castillo of general surgery and MRCP was ordered. Case was referred to the hospitalist service for further management. MRCP resulted as acute cholecystitis and no choledocholithiasis. The case was then referred back to general surgery from the hospitalist for admission. Patient did receive 2 g of IV Mefoxin. MONITORING: An order for cardiac monitoring was placed and the patient is noted to be in a normal sinus rhythm at 80 beats per minute. RADIOLOGY: See below EKG: Normal sinus rhythm at [address] segments. QTC is 439. No PVC, no PAC. No significant change when compared to June 23, 2020 DISPOSITION: Admission Past Med/Surg History Medical History Abdominal pain, epigastric Anemia Anxiety Early satiety Eustachian salpingitis, acute History of abnormal cervical Pap smear Hyperglycemia Hypothyroidism Kidney stones Nephrolithiasis Sinusitis URI (upper respiratory infection) Vitamin B12 deficiency Well adult exam Surgical History H/O breast augmentation H/O oral surgery History of lithotripsy History of lithotripsy Hx laparoscopic cholecystectomy (06/10/22) Laparoscopic Cholecystectomy(Not Applicable) - Anastacio Castillo, DO Family History Mother Breast cancer Hypertension Dyslipidemia Myocardial infarction Grandmother (Maternal) Hypertension Dyslipidemia Father Hypertension Kidney stones Grandfather Kidney stones Grandmother (Paternal) Hypertension Dyslipidemia Breast cancer Grandfather (Maternal) Hypertension Dyslipidemia Grandfather (Paternal) Hypertension Dyslipidemia Denies family history of Ovarian cancer Prostate cancer Colorectal cancer Uterine cancer Social History Smoking Status: Never smoker Hx Alcohol Use: No Hx Substance Use: No Preferred Language: Vincentian Communication Ability: Effective Visual Impairment: No Limitations Hearing Ability: Normal Business Solutions Consultant Required: No Beliefs That Will Affect Care: None marital status: Current Living Situation: Family Current Living Situation Comment: current occupational status: unemployed Feels Safe at Home: Yes Childhood Exposure to Second-Hand Smoke: Yes caffeine: Yes Dental Care, Regularly: Yes Physical Activity Frequency: Does not Exercise Seatbelt Use: always Sunscreen Use: Yes Assistive Devices: None Allergies Allergies Allergy/AdvReac Type Severity Reaction Status Date / Time Sulfa (Sulfonamide Allergy Severe EYES SWELL Verified 06/13/22 10:34 Antibiotics) Penicillins Allergy Intermediate Hives Verified 06/13/22 10:34 nitrofurantoin AdvReac Intermediate hives Verified 06/13/22 10:34 Home Meds Home Medications Medication Instructions Recorded Confirmed naproxen sodium 220 mg tablet 440 mg PO BID PRN Pain 06/09/22 06/13/22 (Aleve) Previous Rx's Medication Instructions Recorded alprazolam 0.5 mg tablet 0.5 mg PO DAILY PRN anxiety #10 06/08/22 tabs venlafaxine 75 mg capsule,extended 75 mg PO DAILY #30 caps 06/08/22 release 24 hr zolpidem 12.5 mg tablet,extended 12.5 mg PO DAILY PRN insomnia #30 06/08/22 release,multiphase tabs Results & Data (ED) Vital Signs Vital Signs - 24 hr 06/09/22 15:47 06/09/22 17:25 06/09/22 17:25 Temperature 36.5 C Temperature Source Oral Pulse Rate 82 Pulse Rate [Right Finger] 72 Pulse Rate from SpO2 Sensor Pulse Rhythm [Right Finger] Pulse Strength [Right Finger] Respiratory Rate 18 20 Respiratory Effort / Characteristics Non-Labored Respiratory Depth Normal Respiratory Pattern Blood Pressure 156/91 H 164/103 H Blood Pressure [Right Arm] 164/103 H Blood Pressure Mean 112 123 Blood Pressure Mean [Right Arm] 123 Pulse Oximetry 100 100 Oxygen Delivery Method Room Air Room Air Sepsis Recent Fever Within 48 Hours No Sepsis New/Unexplained Change in Mental Status No Sepsis Action Taken by Nursing No Action Required 06/09/22 17:25 06/09/22 18:42 06/09/22 18:43 Temperature Temperature Source Pulse Rate Pulse Rate [Right Finger] Pulse Rate from SpO2 Sensor 79 68 Pulse Rhythm [Right Finger] Pulse Strength [Right Finger] Respiratory Rate Respiratory Effort / Characteristics Respiratory Depth Respiratory Pattern Blood Pressure 187/105 H Blood Pressure [Right Arm] Blood Pressure Mean 132 Blood Pressure Mean [Right Arm] Pulse Oximetry 100 99 Oxygen Delivery Method Sepsis Recent Fever Within 48 Hours Sepsis New/Unexplained Change in Mental Status Sepsis Action Taken by Nursing 06/09/22 18:43 06/09/22 18:45 06/09/22 19:00 Temperature Temperature Source Pulse Rate Pulse Rate [Right Finger] Pulse Rate from SpO2 Sensor 71 75 Pulse Rhythm [Right Finger] Pulse Strength [Right Finger] Respiratory Rate Respiratory Effort / Characteristics Respiratory Depth Respiratory Pattern Blood Pressure 187/105 H Blood Pressure [Right Arm] Blood Pressure Mean 132 Blood Pressure Mean [Right Arm] Pulse Oximetry 98 98 Oxygen Delivery Method Sepsis Recent Fever Within 48 Hours Sepsis New/Unexplained Change in Mental Status Sepsis Action Taken by Nursing 06/09/22 19:00 06/09/22 19:59 Temperature Temperature Source Pulse Rate Pulse Rate [Right Finger] 80 Pulse Rate from SpO2 Sensor 64 Pulse Rhythm [Right Finger] Regular Pulse Strength [Right Finger] Normal Respiratory Rate 19 Respiratory Effort / Characteristics Non-Labored Respiratory Depth Normal Respiratory Pattern Regular Blood Pressure Blood Pressure [Right Arm] 182/95 H Blood Pressure Mean Blood Pressure Mean [Right Arm] 124 Pulse Oximetry 99 97 Oxygen Delivery Method Room Air Sepsis Recent Fever Within 48 Hours Sepsis New/Unexplained Change in Mental Status Sepsis Action Taken by Detention Medications Current Medication List: was personally reviewed by me Laboratory Data Attestation: I reviewed the patient's lab results. Result diagrams: 06/12/22 08:57 06/12/22 08:57 Lab Results 06/09/22 06/09/22 06/09/22 Range/Units 16:53 16:53 17:20 WBC 6.86 (4.8-10.8) K/ul RBC 4.48 (3.93-5.22) M/uL Hgb 12.5 (12.0-16.0) g/dl Hct 37.9 (34.1-44.9) % MCV 84.6 (80.0-100.0) fL MCH 27.9 (25.0-34.0) pg MCHC 33.0 (32.0-36.0) g/dL RDW Std Deviation 42.5 (36.4-46.3) fL RDW Coeff of Solo 13.8 (11.5-14.5) % Plt Count 396 (130-400) K/uL MPV 9.1 L (9.4-12.3) fL Immature Gran % (Auto) 0.1 % Neut % (Auto) 72.8 % Lymph % (Auto) 20.8 % [place] % (Auto) 5.0 % Eos % (Auto) 0.6 % Baso % (Auto) 0.7 % Neut # (Auto) 4.99 (1.4-6.5) K/uL Lymph # (Auto) 1.43 (1.2-3.4) K/uL [place] # (Auto) 0.34 (0.24-0.82) K/uL Eos # (Auto) 0.04 (0-0.50) K/uL Baso # (Auto) 0.05 (0-0.2) K/uL Immature Gran # (Auto) 0.01 (0.00-0.02) K/uL Sodium 137 (136-145) mmol/L Potassium 4.1 (3.5-5.1) mmol/L Chloride 105 (98-107) mmol/L Carbon Dioxide 25 (21-32) mmol/L Anion Gap 7 (3-11) BUN 9 (6-23) mg/dl Creatinine 0.75 (0.6-1.2) mg/dl Est Cr Clr Drug Dosing 94.0 ml/min Est GFR ( Amer) 110.0 ml/min Est GFR (Non-Af Amer) 94.9 ml/min BUN/Creatinine Ratio 12.0 (10-20) Glucose 95 (70-99(Fasting)) mg/dl Calcium 9.5 (8.5-10.1) mg/dl Total Bilirubin 0.8 (0.2-1.0) mg/dl AST 698 H (13-39) U/L ALT 358 H (7-52) U/L Alkaline Phosphatase 214 H (34-104) U/L Total Protein 7.4 (6.0-8.3) gm/dl Albumin 3.8 (3.4-5.0) gm/dl Globulin 3.6 (2.5-4.0) gm/dl Albumin/Globulin Ratio 1.1 (0.9-2) Lipase 26 (11-82) U/L Urine Color Yellow Urine Appearance Cloudy A (Clear) Urine pH 8.5 H (4.5-7.5) Ur Specific [place] 1.010 (1.000-1.030) Urine Protein Negative (Negative) Urine Glucose (UA) Negative (Negative) Urine Ketones Negative (Negative) Urine Blood Trace H (Negative) Urine Nitrite Negative (Negative) Urine Bilirubin Negative (Negative) Urine Urobilinogen Negative (Negative) Ur Leukocyte Esterase Negative (Negative) Urine WBC (Auto) 1-5 (0-5) /hpf Urine RBC (Auto) 0-4 (0-4) /hpf U Hyaline Cast (Auto) 1-5 (0-5) /lpf U Epithel Cells (Auto) >30 H (0-5) /lpf Urine Bacteria (Auto) Negative (Negative) POC Ur Test (NEG) SARS-CoV-2, RNA, NAAT (NEGATIVE) 06/09/22 06/09/22 Range/Units 17:24 18:44 WBC (4.8-10.8) K/ul RBC (3.93-5.22) M/uL Hgb (12.0-16.0) g/dl Hct (34.1-44.9) % MCV (80.0-100.0) fL MCH (25.0-34.0) pg MCHC (32.0-36.0) g/dL RDW Std Deviation (36.4-46.3) fL RDW Coeff of Solo (11.5-14.5) % Plt Count (130-400) K/uL MPV (9.4-12.3) fL Immature Gran % (Auto) % Neut % (Auto) % Lymph % (Auto) % [place] % (Auto) % Eos % (Auto) % Baso % (Auto) % Neut # (Auto) (1.4-6.5) K/uL Lymph # (Auto) (1.2-3.4) K/uL [place] # (Auto) (0.24-0.82) K/uL Eos # (Auto) (0-0.50) K/uL Baso # (Auto) (0-0.2) K/uL Immature Gran # (Auto) (0.00-0.02) K/uL Sodium (136-145) mmol/L Potassium (3.5-5.1) mmol/L Chloride (98-107) mmol/L Carbon Dioxide (21-32) mmol/L Anion Gap (3-11) BUN (6-23) mg/dl Creatinine (0.6-1.2) mg/dl Est Cr Clr Drug Dosing ml/min Est GFR ( Amer) ml/min Est GFR (Non-Af Amer) ml/min BUN/Creatinine Ratio (10-20) Glucose (70-99(Fasting)) mg/dl Calcium (8.5-10.1) mg/dl Total Bilirubin (0.2-1.0) mg/dl AST (13-39) U/L ALT (7-52) U/L Alkaline Phosphatase (34-104) U/L Total Protein (6.0-8.3) gm/dl Albumin (3.4-5.0) gm/dl Globulin (2.5-4.0) gm/dl Albumin/Globulin Ratio (0.9-2) Lipase (11-82) U/L Urine Color Urine Appearance (Clear) Urine pH (4.5-7.5) Ur Specific [place] (1.000-1.030) Urine Protein (Negative) Urine Glucose (UA) (Negative) Urine Ketones (Negative) Urine Blood (Negative) Urine Nitrite (Negative) Urine Bilirubin (Negative) Urine Urobilinogen (Negative) Ur Leukocyte Esterase (Negative) Urine WBC (Auto) (0-5) /hpf Urine RBC (Auto) (0-4) /hpf U Hyaline Cast (Auto) (0-5) /lpf U Epithel Cells (Auto) (0-5) /lpf Urine Bacteria (Auto) (Negative) POC Ur Test NEG (NEG) SARS-CoV-2, RNA, NAAT NEGATIVE (NEGATIVE) Administered Medications Discontinued Medications Acetaminophen (Acetaminophen 500 Mg Tab) 1,000 mg PO Q8H PRN PRN Reason: Mild pain & Pre PT Stop: 07/10/22 17:50 Last Admin: 06/11/22 21:33 Dose: 1,000 mg Documented By: TATYANA Alprazolam (Alprazolam 0.5 Mg Tablet) 0.5 mg PO DAILY PRN PRN Reason: anxiety Stop: 07/10/22 00:55 Last Admin: 06/11/22 21:33 Dose: 0.5 mg Documented By: Admin: 06/11/22 14:19 Dose: 0.5 mg Documented By: Admin: 06/10/22 20:12 Dose: 0.5 mg Documented By: Admin: 06/10/22 01:15 Dose: 0.5 mg Documented By: RADHA Bupivacaine HCl/Epinephrine Bitart (Bupivacaine/Epinephrine 0.25% 1:200,000 30 Ml Vial) Confirm Administered Dose 30 ml .ROUTE .STK-MED ONE Stop: 06/10/22 11:29 Last Admin: 06/10/22 13:02 Dose: 30 ml Documented By: [id number] Fentanyl Citrate (Fentanyl Citrate 100 Mcg/2 Ml Vial) 50 mcg IV Q5M PRN PRN Reason: PACU Use Only-Pain Stop: 06/10/22 19:31 Last Admin: 06/10/22 14:18 Dose: 50 mcg Documented By: Admin: 06/10/22 14:12 Dose: 50 mcg Documented By: Admin: 06/10/22 13:33 Dose: 50 mcg Documented By: HUMAIRA Hydromorphone HCl (Hydromorphone Inj 0.5 Mg/0.5 Ml Syr) 0.5 mg IV NOW STA Stop: 06/09/22 18:02 Last Admin: 06/09/22 18:35 Dose: 0.5 mg Documented By: REINA Hydromorphone HCl (Hydromorphone Inj 2 Mg/Ml Syr/Vial) 0.5 mg IV Q5M PRN PRN Reason: PACU Use Only-Pain Stop: 06/10/22 19:31 Last Admin: 06/10/22 14:04 Dose: 0.5 mg Documented By: Admin: 06/10/22 13:59 Dose: 0.5 mg Documented By: Admin: 06/10/22 13:54 Dose: 0.5 mg Documented By: Admin: 06/10/22 13:49 Dose: 0.5 mg Documented By: ILAN Sodium Chloride (Nss 1000ml) 1,000 mls @ 999 mls/hr IV .Q1H1M ONE Stop: 06/09/22 19:01 Last Infusion: 06/09/22 22:21 Dose: 0 mls/hr Documented By: Admin: 06/09/22 18:35 Dose: 999 mls/hr Documented By: REINA Cefoxitin Sodium (Mefoxin) 2,000 mg in 60 mls @ 100 mls/hr IV NOW STA Stop: 06/09/22 22:27 Last Infusion: 06/10/22 00:57 Dose: 0 mls/hr Documented By: Admin: 06/09/22 23:29 Dose: 100 mls/hr Documented By: ONUR Sodium Chloride (Nss 1000ml) 1,000 mls @ 125 mls/hr IV .Q8H STA Stop: 06/10/22 07:08 Last Infusion: 06/10/22 07:53 Dose: 0 mls/hr Documented By: Admin: 06/10/22 00:58 Dose: 125 mls/hr Documented By: RADHA Cefazolin Sodium (Ancef 2000mg) 2,000 mg in 15 mls @ 3.75 mls/min IV ONCE ONE Stop: 06/10/22 12:55 Last Admin: 06/10/22 12:16 Dose: 3.75 mls/min Documented By: ISAAC Lorazepam 1 mg/ Syringe 1 mls @ 2 mls/min IV Q8H PRN PRN Reason: Anxiety Stop: 07/10/22 14:19 Last Admin: 06/10/22 14:38 Dose: 2 mls/min Documented By: HUMAIRA Sodium Chloride (Nss 1000ml) 1,000 mls @ 999 mls/hr IV .Q1H1M ONE Stop: 06/11/22 17:16 Last Infusion: 06/11/22 18:53 Dose: 0 mls/hr Documented By: Admin: 06/11/22 16:45 Dose: 999 mls/hr Documented By: MARLENI Ketorolac Tromethamine (Ketorolac 30 Mg/Ml Vial) 30 mg IV Q6 ERWIN Stop: 06/16/22 22:59 Last Admin: 06/12/22 12:13 Dose: 30 mg Documented By: Admin: 06/12/22 05:41 Dose: 30 mg Documented By: Admin: 06/11/22 22:57 Dose: 30 mg Documented By: TATYANA Ketorolac Tromethamine (Ketorolac 30 Mg/Ml Vial) 30 mg IV NOW ONE Stop: 06/11/22 16:17 Last Admin: 06/11/22 16:45 Dose: 30 mg Documented By: MARLENI Morphine Sulfate (Morphine Sulfate 2 Mg/Ml Carp) 2 mg IV Q3H PRN PRN Reason: Pain (1,2,3,4,5) & Pre PT Stop: 06/24/22 17:50 Last Admin: 06/11/22 11:02 Dose: 2 mg Documented By: MARLENI Ondansetron HCl (Ondansetron Inj 2 Mg/Ml 2 Ml Vial) 4 mg IV NOW STA Stop: 06/09/22 18:02 Last Admin: 06/09/22 18:35 Dose: 4 mg Documented By: REINA Ondansetron HCl (Ondansetron Inj 2 Mg/Ml 2 Ml Vial) Confirm Administered Dose 4 mg .ROUTE .STK-MED ONE Stop: 06/09/22 21:51 Last Admin: 06/09/22 21:54 Dose: 4 mg Documented By: JOYCE Ondansetron HCl (Ondansetron Inj 2 Mg/Ml 2 Ml Vial) 4 mg IV Q4H PRN PRN Reason: Nausea And Vomiting Stop: 07/10/22 00:55 Last Admin: 06/11/22 12:27 Dose: 4 mg Documented By: Admin: 06/10/22 17:43 Dose: 4 mg Documented By: RENUKA Oxycodone/Acetaminophen (Oxycodone/Acetaminophen 5mg/325mg Tab) 1 tab PO Q4H PRN PRN Reason: Moderate pain Stop: 06/24/22 17:49 Last Admin: 06/11/22 14:02 Dose: 1 tab Documented By: Admin: 06/11/22 05:52 Dose: 1 tab Documented By: TATAYNA Oxycodone/Acetaminophen (Oxycodone/Acetaminophen 5mg/325mg Tab) 2 tab PO Q4H PRN PRN Reason: Severe pain Stop: 06/24/22 17:49 Last Admin: 06/10/22 21:19 Dose: 2 tab Documented By: AUSTEN Venlafaxine HCl (Venlafaxine Hcl Xr 75 Mg Capxr) 75 mg PO DAILY ERWIN Stop: 07/10/22 08:59 Last Admin: 06/12/22 07:44 Dose: 75 mg Documented By: Admin: 06/11/22 09:09 Dose: 75 mg Documented By: Admin: 06/10/22 07:50 Dose: Not Given Documented By: MARLENI Zolpidem Tartrate (Zolpidem Tartrate 10 Mg Tab) 10 mg PO HS PRN PRN Reason: Sleep Stop: 07/10/22 01:16 Last Admin: 06/11/22 21:33 Dose: 10 mg Documented By: Admin: 06/10/22 20:12 Dose: 10 mg Documented By: Admin: 06/10/22 01:38 Dose: 10 mg Documented By: CLB Imaging Data Radiologist's Impression: Gallbladder Ultrasound 06/09/22 17:58 US gallbladder HISTORY: 47 years-old Female Epigastric pain . Acute generalized abdominal pain with nausea COMPARISON: CT abdomen and pelvis 05/08/2021 TECHNIQUE: Multiple real-time sonographic images of the abdominal right upper quadrant were obtained assessing grayscale appearance and color flow FINDINGS: The visualized pancreas is unremarkable. The liver measures up to 18 cm in length. 1.6 x 1.7 x 1.8 cm hyperechoic focus within the right hepatic lobe suggestive of a hemangioma, stable from prior. Patent portal vein. Cholelithiasis with mild gallbladder wall thickening measuring up to 4 mm. No significant gallbladder distention. Gallstones are also noted within the gallbladder neck. No pericholecystic fluid. Sonographic Reyes sign cannot be obtained secondary to recent pain medication administered to the patient. Normal common bile duct, 5 mm. Calculi of the right kidney without hydronephrosis measuring up to approximately 4 mm. IMPRESSION: 1. Cholelithiasis with nonspecific gallbladder wall thickening. Findings are equivocal for acute cholecystitis. Findings could be correlated with nuclear medicine hepatobiliary scan. 2. No biliary ductal dilation. 3. Right nephrolithiasis without hydronephrosis. ACT 112: Negative or not required by law. The above report was generated using voice recognition software. It may contain grammatical, syntax or spelling errors. Electronically signed by: Jose Rutledge M.D. 06/09/2022 8:12 PM Cholangiopancreatography MRI 06/09/22 20:02 MR MRCP HISTORY: 47 years-old Female elevated liver enzymes acutely elevated LFTs. History of renal calculi. COMPARISON: Gallbladder ultrasound of same day, CT abdomen and pelvis 05/08/2021 TECHNIQUE: MRCP was obtained without the use of IV contrast. FINDINGS: No acute process of the imaged lower chest. Unremarkable spleen, pancreas and adrenal glands. Unremarkable kidneys without hydronephrosis. Aorta and IVC are unremarkable. No lymphadenopathy. No bowel obstruction or bowel wall thickening. Unremarkable soft tissues. There are 2 T2 hyperintense foci noted within the left hepatic lobe measuring up to 1.8 cm. Subcapsular fat with calcifications within the right hepatic lobe redemonstrated. 1.8 cm T2 hyperintense lesion with in the right hepatic lobe, image 12 series 5. This lesion is not well- characterized by MRCP. Nonspecific gallbladder wall thickening with trace pericholecystic fluid. Normal common bile duct. No choledocholithiasis identified. Transverse dimension of the common bile duct measures 5 mm. Bilateral breast implants. IMPRESSION: 1. Gallbladder wall thickening with pericholecystic fluid. Correlate clinically to exclude acute cholecystitis. 2. No biliary ductal dilation or choledocholithiasis. 3. There are a few scattered indeterminate hepatic lesions noted. ACT 112: Negative or not required by law. The above report was generated using voice recognition software. It may contain grammatical, syntax or spelling errors. Electronically signed by: Jose Rutledge M.D. 06/09/2022 10:12 PM Blood Pressure Blood Pressure Findings: Elevated blood pressure Blood Pressure Disposition: further management by hospitalist Discharge Plan Visit Data Chief Complaint: Abdominal Pain Stated Complaint: ABDOMINAL PAIN ED Provider: Shelby Bonilla Discharge Problem: Acute cholecystitis, Elevated LFTs Patient Disposition: Admitted As Inpatient Discharge Instructions Interventions: ED Discharge Assessment Last Done: 06/10/22 00:36
[2022-06-09] MEDS ORDERED: ONDANSETRON INJ 2 MG/ML 2 ML VIAL ONE (21:50)
[2022-06-09] MEDS ORDERED: cefOXitin 2,000 MG/60 ML BAG IV STA (21:52)
--- NOTE | 2022-06-09 22:14 | Magnetic Resonance Report ---
MR MRCP HISTORY: 47 years-old Female elevated liver enzymes acutely elevated LFTs. History of renal calculi. COMPARISON: Gallbladder ultrasound of same day, CT abdomen and pelvis 05/08/2021 TECHNIQUE: MRCP was obtained without the use of IV contrast. FINDINGS: No acute process of the imaged lower chest. Unremarkable spleen, pancreas and adrenal glands. Unremar kable kidneys without hydronephrosis. Aorta and IVC are unremarkable. No lymphadenopathy. No bowel ob struction or bowel wall thickening. Unremarkable soft tissues. There are 2 T2 hyperintense foci noted within the left hepatic lobe measuring up to 1.8 cm. Subcapsular fat with calcifications within the right hepatic lobe redemonstrated. 1.8 cm T2 hyperintense lesion within the right hepatic lobe, image 12 series 5. This lesion is not well-characterized by MRCP. Nonspecific gallbladder wall thickening with trace pericholecystic fluid. Normal common bile duct. No choledocholithiasis identified. Transverse dimension of the common bile duct measures 5 mm. Bilatera l breast implants. IMPRESSION: 1. Gallbladder wall thickening with pericholecystic fluid. Correlate clinically to exclude acute chol ecystitis. 2. No biliary ductal dilation or choledocholithiasis. 3. There are a few scattered indeterminate hepatic lesions noted. ACT 112: Negative or not required by law. The above report was generated using voice recognition software. It may contain grammatical, syntax o r spelling errors. Electronically signed by: Jose Rutledge M.D. 06/09/2022 10:12 PM
[2022-06-09] MEDS ORDERED: SODIUM CHLORIDE 0.9% 1000ML 1,000 ML IV STA (23:09)
[2022-06-10] MEDS ORDERED: MoRPHine SULFATE 4 MG/ML 1 ML CARP\\VIAL IV PRN ×2 (00:56→17:51)
[2022-06-10] MEDS: ALPRAZolam 0.5 MG TABLET PO PRN ×2 (01:15→20:12)
[2022-06-10] MEDS: ZOLPIDEM TARTRATE 10 MG TAB PO PRN ×2 (01:38→20:12)
[2022-06-10 07:40] LABS: Basophils # (auto) 0.06 K/uL (0-0.2); Basophils % (auto) 1.1 %; Eosinophils # (auto) 0.11 K/uL (0-0.50); Hematocrit (blood only) 33.5 % (34.1-44.9); Hemoglobin 11.1 g/dl (12.0-16.0); Immature Granulocytes # (auto) 0.02 K/uL (0.00-0.02); Immature Granulocytes % (auto) 0.4 %; Lymphocytes # (auto) 1.64 K/uL (1.2-3.4); Lymphocytes % (auto) 29.6 %; Mean Corpuscular Hemoglobin 28.2 pg (25.0-34.0); Mean Corpuscular Hgb Conc 33.1 g/dL (32.0-36.0); Mean Corpuscular Volume 85.2 fL (80.0-100.0); Mean Platelet Volume 8.9 fL (9.4-12.3); Monocytes # (auto) 0.28 K/uL (0.24-0.82); Monocytes % (auto) 5.1 %; Neutrophils # (auto) 3.43 K/uL (1.4-6.5); Neutrophils % (auto) 61.8 %; Platelet Count 338 K/uL (130-400); RDW Coefficient of Variation 13.8 % (11.5-14.5); RDW Standard Deviation 42.7 fL (36.4-46.3); Red Blood Count 3.93 M/uL (3.93-5.22); White Blood Count 5.54 K/ul (4.8-10.8)
[2022-06-10] MEDS: VENLAFAXINE HCL XR 75 MG CAPXR PO SCH (07:50)
--- NOTE | 2022-06-10 08:02 | Surgery Consultation ---
Date of Consultation June 10, 2022 Assessment & Plan (1) Acute cholecystitis: Plan 47-year-old female with acute cholecystitis. No evidence of choledocholithiasis on MRCP. LFTs elevated on admission. AM labs pending. No history of previous abdominal surgeries. Will plan for OR today for Laparoscopic Cholecystectomy, Possible Open Cholecystectomy, Possible Intraoperative Cholangiogram with Dr. Anastacio Castillo. Post-operative restrictions reviewed with patient. Patient is NPO. Consent to be reviewed and signed by patient with Dr. Castillo. Supervising Physician Co-Signing Physician Notes I personally saw and evaluated the patient with Miladys Guadalupe PA-C and agree with the assessment and plan. 47-year-old female with acute cholecystitis, elevated LFTs Ultrasound images and results personally viewed by me, MRCP images and results personally viewed by me no signs of choledocholithiasis Her LFTs are trending down this morning We will plan on laparoscopic cholecystectomy, possible open, possible intraoperative cholangiogram today Consent was obtained, risk discussed including bleeding, infection, bile leak, ductal injury History of Present Illness Reason for Consultation: Acute cholecystitis Attending Physician: Anastacio Castillo, DO History of Present Illness Lo is a 47-year-old female who presented to [facility] ED for evaluation of epigastric abdominal pain that had started earlier in the day. She states that she has had pain like this in the past, but became concerned when the pain would not improve. She felt nauseous and extremely bloated, but did not throw up. She states that the pain radiated around to her back and up into her chest. She denies history of abdominal surgeries. She does note that her bowel movements are inconsistent and that she tends to be constipated. While in the ED, patient's initial labwork showed an elevation in her LFTs (AST at 698; ALT 358; Alk Phos 214). WBC within normal limits. Gallbladder ultrasound showed 1. Cholelithiasis with nonspecific gallbladder wall thickening. Findings are equivocal for acute cholecystitis. 2. No biliary ductal dilation. Following GB ultrasound, MRCP was performed and illustrated: 1. Gallbladder wall thickening with pericholecystic fluid. Correlate clinically to exclude acute cholecystitis. 2. No biliary ductal dilation or choledocholithiasis. 3. There are a few scattered indeterminate hepatic lesions noted. Currently, Lo states that her abdominal pain is improved and she does not feel as bloated. Allergies Allergy/AdvReac Type Severity Reaction Status Date / Time Sulfa (Sulfonamide Allergy Severe EYES SWELL Verified 06/09/22 22:11 Antibiotics) Penicillins Allergy Intermediate Hives Verified 06/09/22 22:11 nitrofurantoin AdvReac Intermediate hives Verified 06/09/22 22:11 Home Medications Medication Instructions Recorded Confirmed Type alprazolam 0.5 mg tablet 0.5 mg PO DAILY PRN anxiety #10 06/08/22 06/09/22 Rx tabs venlafaxine 75 mg capsule,extended 75 mg PO DAILY #30 caps 06/08/22 06/09/22 Rx release 24 hr zolpidem 12.5 mg tablet,extended 12.5 mg PO DAILY PRN insomnia #30 06/08/22 06/09/22 Rx release,multiphase tabs naproxen sodium 220 mg tablet 440 mg PO BID PRN Pain 06/09/22 06/09/22 History (Aleve) Patient History Medical History Abdominal pain, epigastric Anemia Anxiety Early satiety Eustachian salpingitis, acute History of abnormal cervical Pap smear Hyperglycemia Hypothyroidism Kidney stones Nephrolithiasis Sinusitis URI (upper respiratory infection) Vitamin B12 deficiency Surgical History H/O breast augmentation H/O oral surgery History of lithotripsy History of lithotripsy Family History Mother Breast cancer Hypertension Dyslipidemia Myocardial infarction Grandmother (Maternal) Hypertension Dyslipidemia Father Hypertension Kidney stones Grandfather Kidney stones Grandmother (Paternal) Hypertension Dyslipidemia Breast cancer Grandfather (Maternal) Hypertension Dyslipidemia Grandfather (Paternal) Hypertension Dyslipidemia Denies family history of Ovarian cancer Prostate cancer Colorectal cancer Uterine cancer Social History Smoking Status: Never smoker Hx Alcohol Use: No Hx Substance Use: No Preferred Language: Persian Communication Ability: Effective Visual Impairment: No Limitations Hearing Ability: Normal 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 Required: No Beliefs That Will Affect Care: None marital status: Current Living Situation: Family Current Living Situation Comment: current occupational status: unemployed Other Information That Helps Us Care for You: No Feels Safe at Home: Yes Safety Concerns: Feels Safe At This Time Childhood Exposure to Second-Hand Smoke: Yes caffeine: Yes Dental Care, Regularly: Yes Physical Activity Frequency: Does not Exercise Seatbelt Use: always Sunscreen Use: Yes Assistive Devices: None Review of Systems Constitutional: no fever and no chills Gastrointestinal: + abdominal pain (epigastric region, improved this morning. ) and + constipation; no nausea, no vomiting and no melena Physical Exam Constitutional: WD/WN, vitals as above Respiratory: normal respiratory effort, lungs clear to auscultation Cardiovascular: RRR, no murmur, no edema Gastrointestinal (Abdomen): Inspection/Auscultation: abdomen normal to inspection and normal bowel sounds; abdomen not distended Percussion/Palpation: + abdomen tender (epigastric region ) and abdomen soft; no guarding and abdomen not rigid Skin: no rashes, warm and dry Psychiatric: A+Ox3, euthymic affect Results & Data ([facility]) Vital Signs (Past 12 Hours) Vital Signs Temp Pulse Resp BP Pulse Ox O2 Del Method 06/10/22 07:24 36.6 C 90 14 130/82 98 Room Air 06/10/22 01:19 36.4 C L 81 16 170/93 H 98 Room Air 06/10/22 00:36 Room Air 06/09/22 23:00 85 19 178/103 H 97 Room Air 06/09/22 21:00 90 19 178/108 H 99 Room Air 06/09/22 19:59 80 19 182/95 H 97 Room Air PG Care Time/CCT Total # of Minutes Spent Total Time Spent with Patient: Total time spent is greater than 50% in coordination of care (as documented) at patient's floor/unit and/or counseling patient: [place] [address] Inpt Consult Level 2 (25 - SIGNIFICANT, SEPARATELY IDENTIFIABLE ) Patient Type New Diagnoses Acute cholecystitis K81.0
[2022-06-10 08:16] LABS: Albumin Globulin Ratio 1.4 (0.9-2); Albumin Level 3.4 gm/dl (3.4-5.0); BUN Creatinine Ratio 8.2 (10-20); Bilirubin,Total 0.5 mg/dl (0.2-1.0); Calcium 8.3 mg/dl (8.5-10.1); Creatinine Clr Calc Pharmacy 95.7 ml/min; Est GFR (African American) 113.7 ml/min; Est GFR (Non-African American) 98.1 ml/min; Globulin 2.4 gm/dl (2.5-4.0); Total Protein 5.8 gm/dl (6.0-8.3)
[2022-06-10] MEDS ORDERED: BUPIVACAINE/EPINEPHRINE 0.25% 1:200,000 30 ML VIAL ONE (11:28)
--- NOTE | 2022-06-10 11:29 | Anesthesiology Consultation ---
Date of Service June 10, 2022 Assessment & Plan Chart Review Chart Review: Acceptable Risk for Surgery Consults Requested none History Surgery Operation Date: 06/10/22 10:00 Proposed Procedures p Laparoscopic Cholecystectomy - Anastacio Castillo, Height/Weight Height: 5 ft 4 in Weight: 77 kg Allergies Allergy/AdvReac Type Severity Reaction Status Date / Time Sulfa (Sulfonamide Allergy Severe EYES SWELL Verified 06/09/22 22:11 Antibiotics) Penicillins Allergy Intermediate Hives Verified 06/09/22 22:11 nitrofurantoin AdvReac Intermediate hives Verified 06/09/22 22:11 Medications Home Medications Medication Instructions Recorded Confirmed Last Taken alprazolam 0.5 mg tablet 0.5 mg PO DAILY PRN anxiety #10 06/08/22 06/09/22 Unknown tabs venlafaxine 75 mg capsule,extended 75 mg PO DAILY #30 caps 06/08/22 06/09/22 Unknown release 24 hr zolpidem 12.5 mg tablet,extended 12.5 mg PO DAILY PRN insomnia #30 06/08/22 06/09/22 Unknown release,multiphase tabs naproxen sodium 220 mg tablet 440 mg PO BID PRN Pain 06/09/22 06/09/22 06/08/22 (Aleve) Active Medications Generic Name Dose Route Start Last Admin Trade Name Nicq PRN Reason Stop Dose Admin Alprazolam 0.5 mg 06/10/22 00:56 06/10/22 01:15 Alprazolam 0.5 Mg Tablet PO 07/10/22 00:55 0.5 mg DAILY PRN Administration anxiety Venlafaxine HCl 75 mg 06/10/22 09:00 06/10/22 07:50 Venlafaxine Hcl Xr 75 Mg Capxr PO 07/10/22 08:59 Not Given DAILY ERWIN Zolpidem Tartrate 10 mg 06/10/22 01:17 06/10/22 01:38 Zolpidem Tartrate 10 Mg Tab PO 07/10/22 01:16 10 mg HS PRN Administration Sleep NPO Date Last Intake of Fluids: 06/09/22 Time Last Intake of Fluids: 23:59 Date Last Intake of Solids: 06/09/22 Time Last Intake of Solids: 23:59 Past Medical History Medical History Abdominal pain, epigastric Anemia Anxiety Early satiety Eustachian salpingitis, acute History of abnormal cervical Pap smear Hyperglycemia Hypothyroidism Kidney stones Nephrolithiasis Sinusitis URI (upper respiratory infection) Vitamin B12 deficiency Past Family History Family History Mother Breast cancer Hypertension Dyslipidemia Myocardial infarction Grandmother (Maternal) Hypertension Dyslipidemia Father Hypertension Kidney stones Grandfather Kidney stones Grandmother (Paternal) Hypertension Dyslipidemia Breast cancer Grandfather (Maternal) Hypertension Dyslipidemia Grandfather (Paternal) Hypertension Dyslipidemia Denies family history of Ovarian cancer Prostate cancer Colorectal cancer Uterine cancer Past Surgical History Surgical History H/O breast augmentation H/O oral surgery History of lithotripsy History of lithotripsy Social History Smoking Status: Never smoker Hx Alcohol Use: No Hx Substance Use: No substance use type: does not use Physical Exam Vital Signs Last Vital Signs Temp 36.6 C 06/10/22 07:24 Pulse 90 06/10/22 07:24 Resp 14 06/10/22 07:24 BP 130/82 06/10/22 07:24 Pulse Ox 98 06/10/22 07:24 O2 Del Method 06/10/22 07:24 Testing Laboratory Results 06/10/22 07:26 06/10/22 07:26 Urine Color Yellow 06/09/22 17:20 Urine Appearance Cloudy (Clear) A 06/09/22 17:20 Urine pH 8.5 (4.5-7.5) H 06/09/22 17:20 Ur Specific [place] 1.010 (1.000-1.030) 06/09/22 17:20 Urine Protein Negative (Negative) 06/09/22 17:20 Urine Glucose (UA) Negative (Negative) 06/09/22 17:20 Urine Ketones Negative (Negative) 06/09/22 17:20 Urine Nitrite Negative (Negative) 06/09/22 17:20 Ur Leukocyte Esterase Negative (Negative) 06/09/22 17:20 Urine WBC (Auto) 1-5 /hpf (0-5) 06/09/22 17:20 Urine RBC (Auto) 0-4 /hpf (0-4) 06/09/22 17:20 U Hyaline Cast (Auto) 1-5 /lpf (0-5) 06/09/22 17:20 U Epithel Cells (Auto) >30 /lpf (0-5) H 06/09/22 17:20 Urine Bacteria (Auto) Negative (Negative) 06/09/22 17:20 06/09/22 17:24 POC Ur Test NEG
[2022-06-10] MEDS ORDERED: ONDANSETRON INJ 2 MG/ML 2 ML VIAL IV PRN (11:31)
[2022-06-10] MEDS ORDERED: ATROPINE SULFATE 0.1 MG/ML 10ML SYR IV PRN (11:31)
[2022-06-10] MEDS ORDERED: ePHEDrine sulfate 50 MG/ML AMP IV PRN (11:31)
[2022-06-10] MEDS ORDERED: PROMETHAZINE HCL 12.5 MG in SODIUM CHLORIDE 0.9% 50 ML IV PRN ×2 (11:31→17:51)
[2022-06-10] MEDS ORDERED: ONDANSETRON INJ 2 MG/ML 2 ML VIAL ONE ×2 (11:40→13:08)
[2022-06-10] MEDS ORDERED: ROCURONIUM BROMIDE 10 MG/ML 5 ML VIAL IV ONE (11:40)
[2022-06-10] MEDS ORDERED: LIDOCAINE 2% MPF LOCAL 5 ML VIAL INFIL ONE (11:40)
[2022-06-10] MEDS ORDERED: DEXAMETHASONE SOD INJ 4 MG/ML VIAL ONE (11:40)
[2022-06-10] MEDS ORDERED: MIDAZOLAM HCL 1 MG/ML 2ML VIAL ONE (11:40)
[2022-06-10] MEDS ORDERED: PROPOFOL IV EMULSION 10 MG/ML 20 ML VIAL IV ONE (11:40)
[2022-06-10] MEDS ORDERED: fentaNYL citrate 100 MCG/2 ML VIAL ONE ×2 (11:41→13:17)
--- NOTE | 2022-06-10 12:50 | Electrocardiogram Report ---
Test Reason : Blood Pressure : / mmHG Vent. Rate : 071 BPM Atrial Rate : 071 BPM P-R Int : 164 ms QRS Dur : 074 ms QT Int : 404 ms P-R-T Axes : 048 032 036 degrees QTc Int : 439 ms Normal sinus rhythm Normal ECG When compared with ECG of 23-JUN-2020 18:50, No significant change was found Confirmed by Graeme Syed ([id number]) on 06/10/2022 12:50:21 PM Referred By: REFERRED SELF Confirmed By:Graeme Syed
[2022-06-10] MEDS ORDERED: ceFAZolin 2000MG 2,000 MG/15 ML SYR IV ONE (12:52)
--- NOTE | 2022-06-10 13:07 | Post Operative Brief Note ---
PG Immediate Post Op with CF Date of Surgery June 10, 2022 Pre & Post Diagnosis Operation Date: 06/10/22 10:00 Pre-Op Diagnosis: Acute Cholecystitis Post-Op Diagnosis: Acute Cholecystitis I identified the patient and participated in the time-out.: Yes Procedure Operation Date: 06/10/22 10:00 Actual Procedures p Laparoscopic Cholecystectomy(Not Applicable) - Anastacio Castillo DO Surgeon Anastacio Castillo DO Sales Technician Home [employer] Frieda Guadalupe PA-C Estimated Blood Loss 5 Findings Consistent with Post-Op Diagnosis Specimens Specimen Description: A: Gallbladder and contents Anesthesia Type General Complications none Disposition Disposition: Recovery Room
[2022-06-10] MEDS ORDERED: GLYCOPYRROLATE 0.2 MG/ML VIAL ONE (13:08)
[2022-06-10] MEDS ORDERED: NEOSTIGMINE METHYLSULFATE 1 MG/ML 10ML VIAL ONE (13:08)
--- NOTE | 2022-06-10 13:09 | Operative Report ---
PG Post Operative Report Pre & Post Diagnosis Operation Date: 06/10/22 10:00 Pre-Op Diagnosis: Acute Cholecystitis Post-Op Diagnosis: Acute Cholecystitis I identified the patient and participated in the time-out.: Yes Procedure Operation Date: 06/10/22 10:00 Actual Procedures p Laparoscopic Cholecystectomy(Not Applicable) - Anastacio Castillo DO Surgeon Anastacio Castillo DO Operations Manager Station Frieda Guadalupe PA-C Estimated Blood Loss 5 Findings Consistent with Post-Op Diagnosis Fluids see anesthesia record Specimens Gallbladder to pathology Drains None Anesthesia Type General Complications none Disposition Disposition: Recovery Room Indications 47 yo female with acute cholecystitis Description of Procedure The patient was brought to the operating room and placed in the supine position with both arms extended. At this time she underwent general endotracheal anesthesia without any problems. She was given appropriate pre-operative antibiotics. Her abdomen prepped and draped in the usual sterile fashion. A timeout was called, the procedure was verified as Laparoscopic cholecystectomy, possible open, possible intra-operative cholangiogram. Surgical, nursing and anesthesia teams agreed and the procedure was begun. After injection of 0.25% Marcaine with epinephrine, a supraumbilical vertical incision was made and carried down to the fascia using S-retractors. The abdominal wall was then elevated with towel clamps and abdomen entered using the Veress needle confirming position using the saline drop test. Pneumoperitoneum was established. 5mm trocar was placed. Laparoscope was introduced. No injury from entry into the abdomen was visualized after inspection of the abdomen. Three further ports were placed under direct visualization. One 11mm in the subxiphoid region and two 5mm in the RUQ. At this time the abdomen was inspected and the gallbladder identified. The gallbladder fundus was grasped and retracted cephalad. The gallbladder infundibulum was then grasped and retracted laterally. The cystic duct and cystic artery were then identified and skeletonized. The critical view of safety was obtained. They were both then clipped twice proximally and once distally and then divided using scissors. The gallbladder was then taken off of the liver bed using electrocautery and placed in an endocatch bag and removed from the subxiphoid port. The liver bed was then inspected and no bile leak or bleeding was evident. The subxiphoid port was then closed using 0-Vicryl using the suture passer. The trocars were then removed under direct visualization and no bleeding was present. Abdomen was desufflated. The skin was then closed using 4-0 Monocryl in a subcuticular fashion. Surgical glue was applied. Needle and sponge counts were correct x 2. At this time the patient was awoken from anesthesia and extubated having remained stable throughout the entire case. The patient was then transported to PACU in stable condition. The physician drilling assistant was present scrubbed for the entire case. She was essential in positioning, prepping draping the patient, retraction exposure, driving the laparoscope, closure of the incisions and placement of the dressings. I attest to the content of the Intraoperative Record and any orders documented therein. Any exceptions are noted below.
[2022-06-10] MEDS: fentaNYL citrate 100 MCG/2 ML VIAL IV PRN ×3 (13:33→14:18)
[2022-06-10] MEDS ORDERED: LABETALOL HCL IV 5 MG/ML 20ML IV ONE (13:41)
[2022-06-10] MEDS: HYDROmorphone INJ 2 MG/ML SYR/VIAL IV PRN ×4 (13:49→14:04)
[2022-06-10] MEDS ORDERED: LORazepam 1 MG in SYRINGE 0 ML IV PRN (14:20)
--- NOTE | 2022-06-10 14:58 | Anesthesiology Progress Note ---
Date of Service June 10, 2022 Anesthesia Post Procedure Vital Signs Vital Signs: Temp Pulse Pulse Pulse Resp BP BP 06/10/22 14:45 62 20 153/89 H 06/10/22 14:35 77 16 162/91 H 06/10/22 14:25 36.1 C L 70 21 158/83 H 06/10/22 14:20 69 14 157/85 H 06/10/22 14:10 73 21 186/95 H 06/10/22 14:00 73 15 182/93 H 06/10/22 13:50 72 17 180/95 H 06/10/22 13:40 77 18 198/70 H 06/10/22 13:30 36 C L 86 25 H 181/112 H 06/10/22 07:24 36.6 C 90 14 130/82 06/10/22 01:19 36.4 C L 81 16 170/93 H 06/10/22 00:36 06/09/22 23:00 85 19 178/103 H 06/09/22 21:00 90 19 178/108 H 06/09/22 19:59 80 19 182/95 H 06/09/22 19:00 06/09/22 19:00 187/105 H 06/09/22 18:45 06/09/22 18:43 06/09/22 18:43 187/105 H 06/09/22 18:42 06/09/22 17:25 06/09/22 17:25 164/103 H 06/09/22 17:25 72 20 164/103 H 06/09/22 15:47 36.5 C 82 18 156/91 H Pulse Ox O2 Del Method O2 Flow Rate 06/10/22 14:45 98 Oxymask 4 06/10/22 14:35 99 Oxymask 4 06/10/22 14:25 99 Oxymask 4 06/10/22 14:20 100 Oxymask 4 06/10/22 14:10 100 Oxymask 4 06/10/22 14:00 100 Oxymask 4 06/10/22 13:50 100 Oxymask 4 06/10/22 13:40 100 Oxymask 4 06/10/22 13:30 100 Oxymask 6 06/10/22 07:24 98 Room Air 06/10/22 01:19 98 Room Air 06/10/22 00:36 Room Air 06/09/22 23:00 97 Room Air 06/09/22 21:00 99 Room Air 06/09/22 19:59 97 Room Air 06/09/22 19:00 99 06/09/22 19:00 06/09/22 18:45 98 06/09/22 18:43 98 06/09/22 18:43 06/09/22 18:42 99 06/09/22 17:25 100 06/09/22 17:25 06/09/22 17:25 100 Room Air 06/09/22 15:47 100 Room Air Pain Intensity Abdomen: Pain Intensity: 4 Transfer of Care Handoff Completed per policy Notes Mental Status: alert / awake / arousable and participated in evaluation Patient Amnestic to Procedure: Yes Nausea / Vomiting: adequately controlled Pain: adequately controlled Airway Patency, RR, SpO2: stable & adequate BP & HR: stable & adequate Hydration State: stable & adequate Anesthetic Complications: no major complications apparent
[2022-06-10] MEDS: ONDANSETRON INJ 2 MG/ML 2 ML VIAL IV PRN (17:43)
[2022-06-10] MEDS ORDERED: oxyCODONE/ACETAMINOPHEN 5mg/325mg TAB PO PRN (17:50)
[2022-06-10] MEDS ORDERED: MoRPHine SULFATE 2 MG/ML CARP IV PRN (17:51)
[2022-06-10] MEDS ORDERED: ACETAMINOPHEN 500 MG TAB PO PRN (17:51)
[2022-06-11] MEDS: oxyCODONE/ACETAMINOPHEN 5mg/325mg TAB PO PRN ×2 (05:52→14:02)
[2022-06-11] MEDS: VENLAFAXINE HCL XR 75 MG CAPXR PO SCH (09:09)
--- NOTE | 2022-06-11 09:49 | Surgery Progress Note ---
Date of Service June 11, 2022 Assessment & Plan (1) Acute cholecystitis: Plan: POD 1 lap daniel advance diet, d/c after lunch if doing ok seen with Dr. Castillo Admission and Anticipated Discharge Date Admission Date: June 09, 2022 Supervising Physician Co-Signing Physician Notes I personally saw and evaluated the patient with Kenny Sanchez PA-C and agree with the assessment and plan. 47-year-old female postoperative day 1 laparoscopic cholecystectomy She is tolerating some clears and her nausea has improved Pain is controlled We will plan for DC after lunch if she continues to do well with follow-up with me in 2 weeks Subjective nausea last night resolved this AM, some incisional pain Physical Exam Gastrointestinal (Abdomen): Inspection/Auscultation: + abdominal surgical incision (dry); abdomen not distended Percussion/Palpation: abdomen soft Results & Data ([facility]) Vital Signs (Past 12 Hours) Vital Signs Temp Pulse Resp BP BP Pulse Ox O2 Del Method 06/11/22 07:28 36.7 C 82 14 121/76 97 Room Air 06/11/22 03:31 36.8 C 87 16 130/75 97 Room Air 06/10/22 22:42 36.6 C 88 16 135/85 96 Room Air PG Care Time/CCT Total # of Minutes Spent Total Time Spent with Patient: Total time spent is greater than 50% in coordination of care (as documented) at patient's floor/unit and/or counseling patient: Coding Level of Care Code None Diagnoses Acute cholecystitis K81.0
[2022-06-11] MEDS: ONDANSETRON INJ 2 MG/ML 2 ML VIAL IV PRN (12:27)
[2022-06-11] MEDS: ALPRAZolam 0.5 MG TABLET PO PRN ×2 (14:19→21:33)
[2022-06-11] MEDS ORDERED: KETOROLAC 30 MG/ML VIAL IV ONE (16:16)
[2022-06-11] MEDS ORDERED: SODIUM CHLORIDE 0.9% 1000ML 1,000 ML IV ONE (16:16)
[2022-06-11] MEDS: ZOLPIDEM TARTRATE 10 MG TAB PO PRN (21:33)
[2022-06-11] MEDS: KETOROLAC 30 MG/ML VIAL IV SCH (22:57)
[2022-06-12] MEDS: KETOROLAC 30 MG/ML VIAL IV SCH ×2 (05:41→12:13)
[2022-06-12] MEDS: VENLAFAXINE HCL XR 75 MG CAPXR PO SCH (07:44)
[2022-06-12 09:12] LABS: Basophils # (auto) 0.05 K/uL (0-0.2); Basophils % (auto) 0.6 %; Eosinophils # (auto) 0.07 K/uL (0-0.50); Eosinophils % (auto) 0.9 %; Hematocrit (blood only) 34.3 % (34.1-44.9); Hemoglobin 11.1 g/dl (12.0-16.0); Immature Granulocytes # (auto) 0.02 K/uL (0.00-0.02); Immature Granulocytes % (auto) 0.2 %; Lymphocytes # (auto) 2.86 K/uL (1.2-3.4); Lymphocytes % (auto) 35.2 %; Mean Corpuscular Hemoglobin 28.1 pg (25.0-34.0); Mean Corpuscular Hgb Conc 32.4 g/dL (32.0-36.0); Mean Corpuscular Volume 86.8 fL (80.0-100.0); Mean Platelet Volume 8.9 fL (9.4-12.3); Monocytes # (auto) 0.25 K/uL (0.24-0.82); Monocytes % (auto) 3.1 %; Neutrophils # (auto) 4.88 K/uL (1.4-6.5); Platelet Count 334 K/uL (130-400); RDW Coefficient of Variation 14.1 % (11.5-14.5); RDW Standard Deviation 44.8 fL (36.4-46.3); Red Blood Count 3.95 M/uL (3.93-5.22); White Blood Count 8.13 K/ul (4.8-10.8)
[2022-06-12 09:40] LABS: Albumin Level 3.3 gm/dl (3.4-5.0); BUN Creatinine Ratio 7.6 (10-20); Bilirubin Direct 0.1 mg/dl (0-0.2); Bilirubin,Total 0.3 mg/dl (0.2-1.0); Calcium 8.5 mg/dl (8.5-10.1); Creatinine Clr Calc Pharmacy 88.4 ml/min; Est GFR (African American) 103.3 ml/min; Est GFR (Non-African American) 89.1 ml/min; Potassium 3.9 mmol/L (3.5-5.1); Total Protein 6.5 gm/dl (6.0-8.3)
--- NOTE | 2022-06-12 11:54 | Surgery Progress Note ---
Date of Service June 12, 2022 Assessment & Plan (1) Acute cholecystitis: Plan: POD 2 lap daniel tolerating diet labs normal ok for discharge Admission and Anticipated Discharge Date Admission Date: June 09, 2022 Supervising Physician Co-Signing Physician Notes I personally saw and evaluated the patient with Kenny Sanchez PA-C and agree with the assessment and plan. 47-year-old female postoperative day 2 laparoscopic cholecystectomy Her nausea has improved significantly she is tolerating a diet Pain is controlled Discharge home today with follow-up with me in 2 weeks Subjective nausea resolved, pain control better Physical Exam Gastrointestinal (Abdomen): Inspection/Auscultation: + abdominal surgical incision (clean, dry); abdomen not distended Results & Data ([facility]) Vital Signs (Past 12 Hours) Vital Signs Temp Pulse Resp BP Pulse Ox O2 Del Method 06/12/22 08:00 Room Air 06/12/22 07:38 36.8 C 89 12 157/96 H 93 Room Air PG Care Time/CCT Total # of Minutes Spent Total Time Spent with Patient: Total time spent is greater than 50% in coordination of care (as documented) at patient's floor/unit and/or counseling patient: Coding Level of Care Code None Diagnoses Acute cholecystitis K81.0
== END 2022-06-12 17:00 | disposition home or self-care (01) | DRG 419 ==
LOC: ED 14:48 → 3W 23:20

== ENCOUNTER 2024-09-20 15:15 | Inpatient (IN) ==
[2024-09-20] MEDS: KETOROLAC TROMETHAMINE 15 MG/ML VIAL IV STA (16:40)
[2024-09-20] MEDS: MoRPHine SULFATE 4 MG/ML 1 ML CARP\\VIAL IV PRN (16:40)
[2024-09-20] MEDS: ONDANSETRON INJ 2 MG/ML 2 ML VIAL IV STA (16:40)
[2024-09-20] MEDS: SODIUM CHLORIDE 0.9% 1,000 ML IV ONE (16:40)
[2024-09-20 16:42] LABS: Basophils # (auto) 0.06 K/uL (0.00-0.20); Basophils % (auto) 0.6 %; Eosinophils # (auto) 0.06 K/uL (0.00-0.50); Eosinophils % (auto) 0.6 %; Hematocrit (blood only) 38.4 % (37.0-47.0); Hemoglobin 12.6 g/dl (12.0-16.0); Immature Granulocytes # (auto) 0.02 K/uL (0.01-0.20); Immature Granulocytes % (auto) 0.2 %; Lymphocytes # (auto) 4.03 K/uL (1.20-3.40); Lymphocytes % (auto) 42.6 %; Mean Corpuscular Hemoglobin 27.4 pg (25.0-34.0); Mean Corpuscular Hgb Conc 32.8 g/dL (32.0-36.0); Mean Corpuscular Volume 83.5 fL (80.0-100.0); Mean Platelet Volume 9.3 fL (9.4-12.4); Monocytes # (auto) 0.33 K/uL (0.11-0.59); Monocytes % (auto) 3.5 %; Neutrophils # (auto) 4.95 K/uL (1.40-6.50); Neutrophils % (auto) 52.5 %; Platelet Count 429 K/uL (130-400); RDW Coefficient of Variation 13.4 % (11.5-14.5); RDW Standard Deviation 40.8 fL (36.4-46.3); White Blood Count 9.45 K/ul (4.8-10.8)
--- NOTE | 2024-09-20 16:42 | Emergency Department Note ---
Impression & Plan Hydronephrosis with ureteral calculus, Chest pain, Acute right flank pain ED Provider Note NAME: JUAN M DUMONT AGE: 49 SEX: F : 1975 ARRIVES VIA: Walk-In INFORMANT: Patient, ED PROVIDER(S): Bob Kay DO CHIEF COMPLAINT: Flank pain HPI: The patient is a 49-year-old female who presented to the emergency department for an evaluation of right flank pain. The patient states that she has had right flank pain over the course the last 24 hours. It is very severe. She has a history of kidney stones and states that this feels similar. She has had nausea. She denies having any fever or dysuria. She denies having any chest pain or difficulty breathing. ROS: See above HPI for pertinent positives & negatives. A total of 10 systems reviewed and were otherwise negative. PAST MEDICAL HISTORY: See Below PAST SURGICAL HISTORY: See Below FAMILY HISTORY: See Below SOCIAL HISTORY: See Below HOME MEDICATIONS: See Below ALLERGIES: See Below VITALS: See Below PHYSICAL EXAMINATION: GENERAL: The patient is awake and alert. The patient is anxious and appears to be uncomfortable. EYES: The conjunctivae are clear. The pupils are round and reactive. EARS, NOSE, MOUTH AND THROAT: The nose is without any evidence of any deformity. Mucous membranes are moist. Tongue is midline. NECK: The neck is nontender and supple. RESPIRATORY: Normal respiratory effort is noted there is no evidence of wheezing rhonchi or rales CARDIOVASCULAR: Regular rate and rhythm noted there no murmurs rubs or gallops normal S1 normal S2. GASTROINTESTINAL: The abdomen is soft. Suprapubic tenderness was noted to palpation. There is no guarding or rigidity. BACK: Bilateral CVA tenderness was noted to percussion. MUSCULOSKELETAL/EXTREMITIES: There is no evidence of gross deformity full range of motion is noted in the hips and shoulders. SKIN: There is no obvious evidence of any rash. There are no petechiae, pallor or cyanosis noted. NEUROLOGIC: Patient is awake alert and oriented x3 strength is symmetric patellar reflexes are 2+ bilaterally MEDICAL DECISION MAKING: Patient is a 49-year-old female who presented to the emergency department for an evaluation of flank pain. The patient has a history of kidney stones in the past. She was treated with pain medication in the emergency department. She was reevaluated multiple times. I discussed the patient's laboratory and radiographic studies with her. Ultimately she was found to have multiple distal right ureteral calculi each of which was significant size. The patient was still having significant pain. I will discuss her condition with the on-call [facility] hospitalist. The patient does not appear to be a good candidate for outpatient management of this pain at this time. Triage Nursing notes reviewed. Prior medical records reviewed Vital Signs: reviewed and remarkable for elevated blood pressure. Differential diagnosis: Renal colic, UTI, appendicitis, diverticulitis, mesenteric ischemia, aortic pathology, infections, inflammatory bowel disease, PUD, biliary pathology, as well as other pathologies. ER treatment provided: See below Diagnostics interpreted by me: ECG: EKG was obtained in the emergency department. My interpretation is normal sinus rhythm at 84 bpm. There is no ectopy. T wave inversions were noted in the anterior leads. This was compared to a tracing from September 18, 2024. No changes were noted. Cardiac Monitoring: An order was placed for continuous cardiac monitoring. The monitor shows a rate of 77 bpm with sinus rhythm. Laboratory studies: As stated above and show below. Imaging studies: See below. Radiographic imaging was reviewed by myself Consultation(s): The [place] hospitalist group was notified about the patient. They will evaluate the patient in the emergency department. Past Med/Surg History Problem List (Updated 09/20/24 @ 18:45 by Bob Kay DO) Acute right flank pain (Acute) Chest pain (Acute) Hydronephrosis with ureteral calculus (Acute) White matter low density on CT of brain (Acute) Elevated blood pressure reading (Acute) Migraine (Acute) Chronic insomnia Abnormality of right breast on screening mammogram Breast implant status Hypertension Pre-syncope Dizziness Family history of heart disease in female family member before age 65 Fatigue Shortness of breath Chest pain Low hemoglobin Ocular migraine Left ureteral stone GERD (gastroesophageal reflux disease) Hyperlipidemia Hypothyroidism (acquired) Overweight (BMI 25.0-29.9) Encounter for health maintenance examination Encounter for cosmetic procedure Anxiety History of abnormal cervical Pap smear (Acute) Insomnia (Acute) Nephrolithiasis (Acute) Vitamin B12 deficiency (Acute) Migraine variants (Acute 04/19/11) Medical History Anxiety Hx of motion sickness Obesity semaglutide weekly Chronic insomnia History of hypothyroidism per medical record, pt does not take any medications currently, stopped medication ~summer 2022 (with no follow up) History of hypertension hx of medication, stopped early 2023. Elevated LFTs per medical record Anemia pt unsure if she is still is anemic Abdominal pain, epigastric Kidney stones Surgical History History of colonoscopy Hx laparoscopic cholecystectomy (06/10/22) Laparoscopic Cholecystectomy(Not Applicable) - Anastacio Castillo DO H/O breast augmentation History of lithotripsy H/O oral surgery Family History Mother Dyslipidemia Myocardial infarction Breast cancer Hypertension PONV (postoperative nausea and vomiting) Grandmother (Maternal) Dyslipidemia Hypertension Father Kidney stones Hypertension Grandfather Kidney stones Grandmother (Paternal) Dyslipidemia Breast cancer Hypertension Grandfather (Maternal) Dyslipidemia Hypertension Grandfather (Paternal) Dyslipidemia Hypertension Denies family history of Ovarian cancer Prostate cancer Colorectal cancer Uterine cancer Social History Smoking Status: Never smoker Second Hand Exposure: No; Do You Dip or Chew Tobacco: No; Hx Alcohol Use: No Hx Substance Use: No Preferred Language: Cymro Communication Ability: Effective Visual Impairment: No Limitations Hearing Ability: Normal 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 Beliefs That Will Affect Care: None marital status: Current Living Situation: Family Current Living Situation Comment: current occupational status: unemployed Feels Safe at Home: Yes Childhood Exposure to Second-Hand Smoke: Yes caffeine: Yes Dental Care, Regularly: Yes Physical Activity Frequency: Does not Exercise Seatbelt Use: always Sunscreen Use: Yes Assistive Devices: None Allergies Allergies Allergy/AdvReac Type Severity Reaction Status Date / Time Penicillins Allergy Severe mouth and Verified 09/02/24 13:32 tongue numbness Sulfa (Sulfonamide Allergy Severe EYES SWELL Verified 09/02/24 13:31 Antibiotics) Home Meds Home Medications Medication Instructions Recorded Confirmed semaglutide (weight loss) 0.25 0.5 mg subcut Q7D 09/02/24 09/20/24 mg/0.5 mL subcutaneous pen injector venlafaxine 150 mg 150 mg PO QAM 09/02/24 09/20/24 capsule,extended release 24 hr alprazolam 0.5 mg tablet 0.5 mg PO DAILY PRN Anxiety 09/18/24 09/20/24 ibuprofen 200 mg tablet 400 mg PO Q6H PRN Pain 09/18/24 09/20/24 ondansetron 4 mg disintegrating 4 mg PO UD PRN Nausea And Vomiting 09/18/24 09/20/24 tablet zolpidem 12.5 mg tablet,extended 12.5 mg PO HS PRN Sleep 09/18/24 09/20/24 release,multiphase Results & Data (ED) Vital Signs Vital Signs - 24 hr 09/20/24 15:27 09/20/24 17:43 09/20/24 18:00 Temperature 36.8 C Temperature Source Temporal Artery Scan Pulse Rate 91 H Pulse Rate [Finger] 77 77 Respiratory Rate 20 24 16 Blood Pressure 151/94 H Blood Pressure [Right Arm] 201/108 H 208/109 H Blood Pressure Mean 113 Blood Pressure Mean [Right Arm] 139 142 Pulse Oximetry 100 100 100 Oxygen Delivery Method Room Air Room Air Room Air Sepsis Recent Fever Within 48 Hours No Sepsis New/Unexplained Change in Mental Status N/A Sepsis Action Taken by Nursing No Action Required 09/20/24 19:08 Temperature Temperature Source Pulse Rate 113 H Pulse Rate [Finger] Respiratory Rate Blood Pressure Blood Pressure [Right Arm] Blood Pressure Mean Blood Pressure Mean [Right Arm] Pulse Oximetry Oxygen Delivery Method Sepsis Recent Fever Within 48 Hours Sepsis New/Unexplained Change in Mental Status Sepsis Action Taken by [facility] Medications Current Medication List: was personally reviewed by me Laboratory Data Attestation: I reviewed the patient's lab results. 09/20/24 16:12 09/20/24 16:12 Lab Results 09/20/24 Range/Units 16:12 WBC 9.45 (4.8-10.8) K/ul RBC 4.60 (4.20-5.40) M/uL Hgb 12.6 (12.0-16.0) g/dl Hct 38.4 (37.0-47.0) % MCV 83.5 (80.0-100.0) fL MCH 27.4 (25.0-34.0) pg MCHC 32.8 (32.0-36.0) g/dL RDW Std Deviation 40.8 (36.4-46.3) fL RDW Coeff of Solo 13.4 (11.5-14.5) % Plt Count 429 H (130-400) K/uL MPV 9.3 L (9.4-12.4) fL Immature Gran % (Auto) 0.2 % Neut % (Auto) 52.5 % Lymph % (Auto) 42.6 % Bibb % (Auto) 3.5 % Eos % (Auto) 0.6 % Baso % (Auto) 0.6 % Neut # (Auto) 4.95 (1.40-6.50) K/uL Lymph # (Auto) 4.03 H (1.20-3.40) K/uL Bibb # (Auto) 0.33 (0.11-0.59) K/uL Eos # (Auto) 0.06 (0.00-0.50) K/uL Baso # (Auto) 0.06 (0.00-0.20) K/uL Immature Gran # (Auto) 0.02 (0.01-0.20) K/uL Sodium 140 (136-145) mmol/L Potassium 3.2 L (3.5-5.1) mmol/L Chloride 108 H (98-107) mmol/L Carbon Dioxide 21 (21-32) mmol/L Anion Gap 11 (3-11) BUN 8 (6-23) mg/dl Creatinine 0.89 (0.6-1.2) mg/dl Est Cr Clr Drug Dosing Not Reportable eGFR 79.43 BUN/Creatinine Ratio 9.0 L (10-20) Glucose 89 (70-99(Fasting)) mg/dl Calcium 9.2 (8.6-10.3) mg/dl Total Bilirubin 0.3 (0.2-1.0) mg/dl AST 14 (13-39) U/L ALT 11 (7-52) U/L Alkaline Phosphatase 119 H (34-104) U/L Troponin I High Sens 5.1 (0-14) pg/ml Total Protein 7.5 (6.0-8.3) gm/dl Albumin 4.1 (3.4-5.0) gm/dl Globulin 3.4 (2.5-4.0) gm/dl Albumin/Globulin Ratio 1.2 (0.9-2) Administered Medications Discontinued Medications Hydromorphone HCl (Hydromorphone Inj 0.5 Mg/0.5 Ml Syr) 0.5 mg IV Q15M PRN PRN Reason: Pain Stop: 10/04/24 17:21 Last Admin: 09/20/24 17:27 Dose: 0.5 mg Documented By: RIMMA Sodium Chloride (Nss) 1,000 mls @ 999 mls/hr IV .Q1H1M ONE Stop: 09/20/24 17:31 Last Admin: 09/20/24 16:40 Dose: 999 mls/hr Documented By: RIMMA Ketorolac Tromethamine (Ketorolac Tromethamine 15 Mg/Ml Vial) 10 mg IV NOW STA Stop: 09/20/24 16:31 Last Admin: 09/20/24 16:40 Dose: 10 mg Documented By: RIMMA Morphine Sulfate (Morphine Sulfate 4 Mg/Ml 1 Ml Carp\Vial) 4 mg IV Q15M PRN PRN Reason: Pain Stop: 10/04/24 16:29 Last Admin: 09/20/24 17:02 Dose: 4 mg Documented By: Admin: 09/20/24 16:40 Dose: 4 mg Documented By: RIMMA Ondansetron HCl (Ondansetron Inj 2 Mg/Ml 2 Ml Vial) 4 mg IV NOW STA Stop: 09/20/24 16:31 Last Admin: 09/20/24 16:40 Dose: 4 mg Documented By: RIMMA Imaging Data Attestation: I personally reviewed and interpreted this imaging study as follows: My Impression: CT of the abdomen and pelvis was obtained in the emergency department. My interpretation is no free air, right sided hydronephrosis with distal right ureteral calculi noted, final report below. Radiologist's Impression: Abdomen/Pelvis CT 09/20/24 16:30 EXAMINATION: CT of the abdomen and pelvis performed without contrast TECHNIQUE: Helical CT images from the lung bases through the symphysis pubis were obtained without contrast. Coronal and sagittal reformatted images were generated at a workstation for further assessment. Dose reduction techniques were achieved by using automatic exposure control and/or adjustment of mA and/or kV according to patient size and/or use of iterative reconstruction technique. COMPARISON: 03/22/2024 HISTORY: Abdominal pain FINDINGS: Lower chest: No consolidation. No pleural effusion or pneumothorax. Liver: No suspicious liver lesions. Gallbladder: Cholecystectomy. Spleen: Normal size. Pancreas: No suspicious pancreatic lesions. The pancreatic duct is not dilated. Adrenal glands: No adrenal nodules. Kidneys: There are 2 discrete stones in the distal right ureter, just proximal to the UVJ, measuring up to 5 mm, and 4 mm, craniocaudal, respectively, resulting in moderate right-sided hydroureteronephrosis. Additional, scattered nonobstructing bilateral renal stones are again seen. Bladder / Pelvic organs: Numerous prominent nabothian cysts are again seen. Posterior small calcified uterine fibroid. Similar size and appearance of a 3.5 x 3.0 cm left ovarian or paraovarian cyst.. Bowel: No bowel obstruction. No abnormal bowel wall thickening. The appendix is unremarkable. Lymph nodes: No retroperitoneal, mesenteric, or pelvic lymphadenopathy. Peritoneum / Retroperitoneum: No free fluid or air within the abdomen. Vessels: No infrarenal aortic aneurysm. Bones and soft tissues: No suspicious lesion in the bones. IMPRESSION: There are 2 discrete stones in the distal right ureter, just proximal to the UVJ, measuring up to 5 mm, and 4 mm, craniocaudal, respectively, resulting in moderate right-sided hydroureteronephrosis. Electronically signed by Heriberto Delgado 09-20-2024 5:18 PM Discharge Plan Visit Data Chief Complaint: Kidney Stone Stated Complaint: KIDNEY STONES ED Provider: Bob Kay Discharge Problem: Hydronephrosis with ureteral calculus, Chest pain, Acute right flank pain Patient Disposition: Being Evaluated by Hospitalist Forms Stand Alone Forms: [facility] Prescriptions Prescriptions: No Action venlafaxine 150 mg capsule,extended release 24hr 150 mg PO QAM semaglutide (weight loss) 0.25 mg/0.5 mL Pen Injector 0.5 mg SUBCUT Q7D Rx Instructions: TUESDAYS zolpidem 12.5 mg tablet,ext release multiphase 12.5 mg PO HS PRN (Reason: Sleep) alprazolam 0.5 mg tablet 0.5 mg PO DAILY PRN (Reason: Anxiety) ondansetron 4 mg tablet,disintegrating 4 mg PO UD PRN (Reason: Nausea And Vomiting) ibuprofen [Excedrin IB] 200 mg Tablet 400 mg PO Q6H PRN (Reason: Pain) Referrals Referrals: Amalia Naidu PA-C [Primary Care Provider] - Discharge Problem: Chest pain Qualifiers: Chest pain type: unspecified Qualified Code(s): R07.9 - Chest pain, unspecified
[2024-09-20 16:59] LABS: Alanine Aminotransferase 11 U/L (7-52); Albumin Globulin Ratio 1.2 (0.9-2); Albumin Level 4.1 gm/dl (3.4-5.0); Alkaline Phosphatase 119 U/L (34-104); Anion Gap 11 (3-11); Aspartate Aminotransferase 14 U/L (13-39); Bilirubin,Total 0.3 mg/dl (0.2-1.0); Blood Urea Nitrogen 8 mg/dl (6-23); Calcium 9.2 mg/dl (8.6-10.3); Carbon Dioxide 21 mmol/L (21-32); Chloride 108 mmol/L (98-107); Globulin 3.4 gm/dl (2.5-4.0); Glucose 89 mg/dl (70-99(Fasting)); Potassium 3.2 mmol/L (3.5-5.1); Sodium 140 mmol/L (136-145); Total Protein 7.5 gm/dl (6.0-8.3)
--- NOTE | 2024-09-20 17:19 | CT Scan Report ---
EXAMINATION: CT of the abdomen and pelvis performed without contrast TECHNIQUE: Helical CT images from the lung bases through the symphysis pubis were obtained without contrast. Coronal and sagittal reformatted images were generated at a workstation for further assessment. Dose reduction techniques were achieved by using automatic exposure control and/or adjustment of mA and/or kV according to patient size and/or use of iterative reconstruction technique. COMPARISON: 03/22/2024 HISTORY: Abdominal pain FINDINGS: Lower chest: No consolidation. No pleural effusion or pneumothorax. Liver: No suspicious liver lesions. Gallbladder: Cholecystectomy. Spleen: Normal size. Pancreas: No suspicious pancreatic lesions. The pancreatic duct is not dilated. Adrenal glands: No adrenal nodules. Kidneys: There are 2 discrete stones in the distal right ureter, just proximal to the UVJ, measuring up to 5 mm, and 4 mm, craniocaudal, respectively, resulting in moderate right-sided hydroureteronephrosis. Additional, scattered nonobstructing bilateral renal stones are again seen. Bladder / Pelvic organs: Numerous prominent nabothian cysts are again seen. Posterior small calcified uterine fibroid. Similar size and appearance of a 3.5 x 3.0 cm left ovarian or paraovarian cyst.. Bowel: No bowel obstruction. No abnormal bowel wall thickening. The appendix is unremarkable. Lymph nodes: No retroperitoneal, mesenteric, or pelvic lymphadenopathy. Peritoneum / Retroperitoneum: No free fluid or air within the abdomen. Vessels: No infrarenal aortic aneurysm. Bones and soft tissues: No suspicious lesion in the bones. IMPRESSION: There are 2 discrete stones in the distal right ureter, just proximal to the UVJ, measuring up to 5 mm, and 4 mm, craniocaudal, respectively, resulting in moderate right-sided hydroureteronephrosis. Electronically signed by Heriberto Delgado 09-20-2024 5:18 PM
[2024-09-20] MEDS: HYDROmorphone INJ 0.5 MG/0.5 ML SYR IV PRN (17:27)
--- NOTE | 2024-09-20 18:39 | History & Physical Report ---
Date of Service September 20, 2024 Assessment & Plan (1) Acute right flank pain: Plan: 49yo F with severe pain 2/2 obstructive nephrolithiasis admitted for pain control and urology consult for pain management Obstructing nephrolithiasis CTA/P with 2 discrete stones of the right ureter proximal to the UVJ, 5 mm and 4 mm with moderate right-sided hydro - IVF and flomax added No DEBORAH, creatinine is 0.89 Urology consulted Admitted to medical service Multimodal pain control -UA pending. Patient has an adult allergy with tongue numbness and swelling to penicillin and is allergic to sulfa. +dysuria and severe pain. +sweats. 1 dose of cipro given pending UA. Follow UA/UC for futher - Denies hx RI, CAD, no history of strokes, no history of CKD RCRI 0 points Anxiety/Depression/Insomnia - Venlafaxine 150 qAM - Ambien nightly 12.5mg continued (pt reports she takes this regularly) Semaglutide - Took last week, does not remember the day. Held this as part of preop. Continue to hold this (2) Chest pain: (3) Hydronephrosis with ureteral calculus: History of Present Illness Primary Care Provider: Amalia Evangelista Blanchard is a 49-year-old female with past medical history of migraine, insomnia, B12 deficiency, GERD, hyperlipidemia, hypothyroidism who presents to the ER with right flank pain. Lo reports she felt nausea, with pain, and dizziness last . She reports was seen evaluated and was supposed to have her kidney stones removed a week or so ago, but the procedure had to be cancelled due to confusion around the UA and had the procedure cancelled at the last minute. She reports she was able to contact her Urologist and was rescheduled for this coming sunday, but has had increasing nausea and pain which is no longer tolerable. 'Kidneys have been hurting horribly.' Came to give a urine sample, but had too much pain and came into the ER. Increasing right flank pain over 24 hours. Feels similar to prior episodes of kidney stones. No fever chills or sweats. No lightheadedness dizziness. No shortness of breath. No chest pain. No abdominal pain. Medical History: Reviewed Medications: Reviewed. Sulfa, penicillin Surgical History: Reviewed Family history: Reviewed Allergies: Reviewed Social History: Reviewed. No tobacco or etoh. Code Status: Ful Allergies Allergy/AdvReac Type Severity Reaction Status Date / Time Penicillins Allergy Severe mouth and Verified 09/02/24 13:32 tongue numbness Sulfa (Sulfonamide Allergy Severe EYES SWELL Verified 09/02/24 13:31 Antibiotics) Home Medications Medication Instructions Recorded Confirmed Type semaglutide (weight loss) 0.25 0.5 mg subcut Q7D 09/02/24 09/20/24 History mg/0.5 mL subcutaneous pen injector venlafaxine 150 mg 150 mg PO QAM 09/02/24 09/20/24 History capsule,extended release 24 hr alprazolam 0.5 mg tablet 0.5 mg PO DAILY PRN Anxiety 09/18/24 09/20/24 History ibuprofen 200 mg tablet 400 mg PO Q6H PRN Pain 09/18/24 09/20/24 History ondansetron 4 mg disintegrating 4 mg PO UD PRN Nausea And Vomiting 09/18/24 09/20/24 History tablet zolpidem 12.5 mg tablet,extended 12.5 mg PO HS PRN Sleep 09/18/24 09/20/24 History release,multiphase Past Med/Surg History Problem List (Updated 09/20/24 @ 18:45 by Bob Kay DO) Acute right flank pain (Acute) Chest pain (Acute) Hydronephrosis with ureteral calculus (Acute) White matter low density on CT of brain (Acute) Elevated blood pressure reading (Acute) Migraine (Acute) Chronic insomnia Abnormality of right breast on screening mammogram Breast implant status Hypertension Pre-syncope Dizziness Family history of heart disease in female family member before age 65 Fatigue Shortness of breath Chest pain Low hemoglobin Ocular migraine Left ureteral stone GERD (gastroesophageal reflux disease) Hyperlipidemia Hypothyroidism (acquired) Overweight (BMI 25.0-29.9) Encounter for health maintenance examination Encounter for cosmetic procedure Anxiety History of abnormal cervical Pap smear (Acute) Insomnia (Acute) Nephrolithiasis (Acute) Vitamin B12 deficiency (Acute) Migraine variants (Acute 04/19/11) Medical History Anxiety Hx of motion sickness Obesity semaglutide weekly Chronic insomnia History of hypothyroidism per medical record, pt does not take any medications currently, stopped medication ~summer 2022 (with no follow up) History of hypertension hx of medication, stopped early 2023. Elevated LFTs per medical record Anemia pt unsure if she is still is anemic Abdominal pain, epigastric Kidney stones Surgical History History of colonoscopy Hx laparoscopic cholecystectomy (06/10/22) Laparoscopic Cholecystectomy(Not Applicable) - Anastacio Castillo DO H/O breast augmentation History of lithotripsy H/O oral surgery Family History Mother Dyslipidemia Myocardial infarction Breast cancer Hypertension PONV (postoperative nausea and vomiting) Grandmother (Maternal) Dyslipidemia Hypertension Father Kidney stones Hypertension Grandfather Kidney stones Grandmother (Paternal) Dyslipidemia Breast cancer Hypertension Grandfather (Maternal) Dyslipidemia Hypertension Grandfather (Paternal) Dyslipidemia Hypertension Denies family history of Ovarian cancer Prostate cancer Colorectal cancer Uterine cancer Social History Smoking Status: Never smoker Second Hand Exposure: No; Do You Dip or Chew Tobacco: No; Hx Alcohol Use: No Hx Substance Use: No Preferred Language: Kiswahili Communication Ability: Effective Visual Impairment: No Limitations Hearing Ability: Normal Stenographer Secretary Required: No Beliefs That Will Affect Care: None marital status: Current Living Situation: Family Current Living Situation Comment: current occupational status: unemployed Feels Safe at Home: Yes Childhood Exposure to Second-Hand Smoke: Yes caffeine: Yes Dental Care, Regularly: Yes Physical Activity Frequency: Does not Exercise Seatbelt Use: always Sunscreen Use: Yes Assistive Devices: None Physical Exam Physical Exam: General: A&Ox3. NAD. Cooperative.Appears in pain. HEENT: Atraumatic, normocephalic. Vision/hearing intact Pulm: CTAB A&P. -wheezes, -rales, -rhonchi. Symmetrical chest rise. No increased work of breathing. No respiratory distress. Cardiac: RRR, -mrg. Radial pulses intact and symmetrical. Abdominal: R flank pain. nondistended, soft. BS present. Results & Data Results & Data Vital Signs (Past 12 Hours) Vital Signs Temp Pulse Pulse Resp BP BP Pulse Ox 09/20/24 18:00 77 16 208/109 H 100 09/20/24 17:43 77 24 201/108 H 100 09/20/24 15:27 36.8 C 91 H 20 151/94 H 100 O2 Del Method 09/20/24 18:00 Room Air 09/20/24 17:43 Room Air 09/20/24 15:27 Room Air PG Care Time/CCT Total # of Minutes Spent Total Time Spent with Patient: Total time spent is greater than 50% in coordination of care (as documented) at patient's floor/unit and/or counseling patient: Coding Level of Care Code 05017 INT INP/OBS CARE 2/55MIN Diagnoses Acute right flank pain R10.9 Chest pain R07.9 Chest pain type: unspecified Hydronephrosis with ureteral calculus N13.2 (2) Chest pain Chest pain type: unspecified Qualified Code(s): R07.9 - Chest pain, unspecified
[2024-09-20 19:08] LABS: Troponin I High Sensitivity 5.1 pg/ml (0-14)
[2024-09-20 19:23] LABS: POC Urine Bilirubin Negative (Negative); POC Urine Blood 250 (Negative); POC Urine Glucose Normal (Normal); POC Urine Ketones Negative (Negative); POC Urine Leukocytes Negative (Negative); POC Urine Nitrite Negative (Negative); POC Urine Protein Trace (Negative); POC Urine Urobilinogen Normal (Normal); POC Urine pH 6 (4.5-7.5)
[2024-09-20 19:38] LABS: Appearance Urine Clear (Clear); Bacteria Urine Automated None Seen (None Seen); Bilirubin Urine Negative (Negative); Blood Urine 3+ (Negative); Cast Urine Automated 0-2 /lpf (0-2); Color Urine Yellow; Glucose Urine UA Negative (Negative); Ketones Urine Negative (Negative); Leukocyte Esterase Urine Trace (Negative); Nitrite Urine Negative (Negative); Protein Urine Negative (Negative); RBC Urine Automated >20 /hpf (0-2); Specific Gravity Urine 1.014 (1.000-1.030); Urobilinogen Urine Negative (Negative)
[2024-09-20] MEDS: ONDANSETRON INJ 2 MG/ML 2 ML VIAL IV PRN (19:46)
[2024-09-20] MEDS: CIPROFLOXACIN / D5W 400 MG/200 ML BAG IV STA (19:52)
[2024-09-20] MEDS: HYDROmorphone INJ 1 MG/ML SYRINGE IV PRN (20:29)
[2024-09-20] MEDS: NSS + 20MEQ KCL 20 MEQ/1,000 ML BAG IV SCH (22:25)
[2024-09-20] MEDS: PROCHLORPERAZINE 5 MG in SYRINGE 4 ML IV PRN (22:25)
[2024-09-20] MEDS ORDERED: NALOXONE HCL 0.4 MG/1 ML VIAL/CARP IV PRN (23:09)
[2024-09-20] MEDS ORDERED: ALPRAZolam 0.5 MG TABLET PO PRN (23:09)
[2024-09-21] MEDS: Patient's HEIGHT &/or WEIGHT Needed SCH (00:43)
[2024-09-21] MEDS: POTASSIUM CHLORIDE CRTAB 20 MEQ TABCR PO STA (00:44)
[2024-09-21] MEDS: TAMSULOSIN HCL 0.4 MG CAP PO ONE (00:46)
[2024-09-21] MEDS: ZOLPIDEM TARTRATE 5 MG TAB PO PRN (00:46)
[2024-09-21] MEDS: KETOROLAC TROMETHAMINE 15 MG/ML VIAL IV PRN (00:48)
[2024-09-21] MEDS: PANTOprazole 40 MG/10 ML SYR IV SCH (01:07)
[2024-09-21] MEDS: FAMOTIDINE 20MG IV PUSH 20 MG/5 ML SYR IV SCH (01:08)
[2024-09-21 07:09] LABS: Basophils # (auto) 0.04 K/uL (0.00-0.20); Basophils % (auto) 0.5 %; Eosinophils # (auto) 0.01 K/uL (0.00-0.50); Eosinophils % (auto) 0.1 %; Hemoglobin 10.6 g/dl (12.0-16.0); Immature Granulocytes # (auto) 0.02 K/uL (0.01-0.20); Immature Granulocytes % (auto) 0.2 %; Lymphocytes # (auto) 1.81 K/uL (1.20-3.40); Lymphocytes % (auto) 21.5 %; Mean Corpuscular Hemoglobin 27.5 pg (25.0-34.0); Mean Corpuscular Hgb Conc 33.1 g/dL (32.0-36.0); Mean Corpuscular Volume 83.1 fL (80.0-100.0); Mean Platelet Volume 9.4 fL (9.4-12.4); Monocytes % (auto) 7.1 %; Neutrophils # (auto) 5.93 K/uL (1.40-6.50); Neutrophils % (auto) 70.6 %; Platelet Count 301 K/uL (130-400); RDW Coefficient of Variation 13.6 % (11.5-14.5); RDW Standard Deviation 40.8 fL (36.4-46.3); Red Blood Count 3.85 M/uL (4.20-5.40); White Blood Count 8.41 K/ul (4.8-10.8)
--- NOTE | 2024-09-21 07:25 | Electrocardiogram Report ---
Test Reason : Blood Pressure : */* mmHG Vent. Rate : 84 BPM Atrial Rate : 84 BPM P-R Int : 140 ms QRS Dur : 74 ms QT Int : 380 ms P-R-T Axes : * 61 54 degrees QTcB Int : 449 ms Normal sinus rhythm Nonspecific T wave abnormality Abnormal ECG When compared with ECG of 18-Sep-2024 14:08, Nonspecific T wave abnormality now evident in Lateral leads Confirmed by Heriberto Anderson ([id number]) on 09/21/2024 7:25:17 AM Referred By: REFERRED SELF Confirmed By: Heriberto Anderson
[2024-09-21 07:26] LABS: BUN Creatinine Ratio 8.3 (10-20); Calcium 8.1 mg/dl (8.6-10.3); Creatinine Clr Calc Pharmacy 67.9 ml/min; Potassium 4.2 mmol/L (3.5-5.1)
[2024-09-21 07:50] LABS: Pregnancy Test, Urine Negative (Negative)
[2024-09-21] MEDS: TAMSULOSIN HCL 0.4 MG CAP PO SCH ×2 (08:15→19:24)
[2024-09-21] MEDS: VENLAFAXINE HCL XR 150 MG CAPXR PO SCH (08:15)
--- NOTE | 2024-09-21 09:50 | Urology Consultation ---
Date of Consultation September 21, 2024 Assessment & Plan (1) Hydronephrosis with ureteral calculus: We reviewed the stones in her right ureter, as well as the nonobstructing stones in the kidneys. There is low suspicion for UTI at this point, and kidney function remains normal. We discussed options for her stones including trial of medical expulsive therapy, surgical intervention with ureteral stent placement. We discussed risks and benefits of each of these options. Regarding surgery, we discussed risks of bleeding, infection, injury to urinary tract, need for additional procedures, stent discomfort. Since she has had significant discomfort with stents in the past, she would like to avoid these if possible. With this in mind, and since she is fairly comfortable this morning, we will hold off any intervention for now and give her a chance to pass the stones. If pain and nausea can be controlled on oral medications, I think she could be discharged and stones could be managed as an outpatient, but we will see how she does. Urology will follow along. Okay for her to have a diet this morning. Continue pain control with tamsulosin, ketorolac, acetaminophen, could add Pyridium. If she is unable to manage without IV medications, would recommend n.p.o. at midnight for stent placement. (2) Acute right flank pain: History of Present Illness Reason for Consultation: Ureterolithiasis Attending Physician: Deep Mayfield MD History of Present Illness This is a 49-year-old female followed by urology for nephrolithiasis. She was recently seen in the office after she had been in the ED with right-sided flank pain. CT scan had demonstrated nonobstructive bilateral stones at that time. Due to high burden of stones on the right, per review of the notes, it sounds like plan was for ureteroscopy and stone removal on the right side. She tells me this was scheduled for 09/26/2024, however I do not actually see any appointments pending at that time. She presented to the emergency department on 09/20/2024 with acute onset of severe right-sided flank pain. Workup demonstrated WBC 9.45, creatinine was normal at 0.89. Urinalysis demonstrated 3+ blood but was negative for nitrites, showed trace leukocyte esterase, negative for bacteria. A CT scan of the abdomen and pelvis was performed. I independently reviewed these images from 09/20/2024. Both kidneys are in normal position. There are nonobstructing stones bilaterally. On the right side there is hydronephrosis extending down the ureter to 2 stones near the ureterovesical junction, measuring approximately 5 mm in diameter. She was admitted for pain control and urology consultation. At the bedside this morning, she is feeling more comfortable, no longer having acute pain or nausea. She denies any fevers or chills. She reports that she has never been able to pass stone spontaneously. She also reports not tolerating stents well in the past. Allergies Allergy/AdvReac Type Severity Reaction Status Date / Time Penicillins Allergy Severe mouth and Verified 09/02/24 13:32 tongue numbness Sulfa (Sulfonamide Allergy Severe EYES SWELL Verified 09/02/24 13:31 Antibiotics) Home Medications Medication Instructions Recorded Confirmed Type semaglutide (weight loss) 0.25 0.5 mg subcut Q7D 09/02/24 09/20/24 History mg/0.5 mL subcutaneous pen injector venlafaxine 150 mg 150 mg PO QAM 09/02/24 09/20/24 History capsule,extended release 24 hr alprazolam 0.5 mg tablet 0.5 mg PO DAILY PRN Anxiety 09/18/24 09/20/24 History ibuprofen 200 mg tablet 400 mg PO Q6H PRN Pain 09/18/24 09/20/24 History ondansetron 4 mg disintegrating 4 mg PO UD PRN Nausea And Vomiting 09/18/24 09/20/24 History tablet zolpidem 12.5 mg tablet,extended 12.5 mg PO HS PRN Sleep 09/18/24 09/20/24 History release,multiphase Patient History Medical History Anxiety Hx of motion sickness Obesity semaglutide weekly Chronic insomnia History of hypothyroidism per medical record, pt does not take any medications currently, stopped medication ~summer 2022 (with no follow up) History of hypertension hx of medication, stopped early 2023. Elevated LFTs per medical record Anemia pt unsure if she is still is anemic Abdominal pain, epigastric Kidney stones Surgical History History of colonoscopy Hx laparoscopic cholecystectomy (06/10/22) Laparoscopic Cholecystectomy(Not Applicable) - Anastacio Castillo DO H/O breast augmentation History of lithotripsy H/O oral surgery Family History Mother Dyslipidemia Myocardial infarction Breast cancer Hypertension PONV (postoperative nausea and vomiting) Grandmother (Maternal) Dyslipidemia Hypertension Father Kidney stones Hypertension Grandfather Kidney stones Grandmother (Paternal) Dyslipidemia Breast cancer Hypertension Grandfather (Maternal) Dyslipidemia Hypertension Grandfather (Paternal) Dyslipidemia Hypertension Denies family history of Ovarian cancer Prostate cancer Colorectal cancer Uterine cancer Social History Smoking Status: Never smoker Second Hand Exposure: No; Do You Dip or Chew Tobacco: No; Hx Alcohol Use: No Hx Substance Use: No Preferred Language: Greek Communication Ability: Effective Visual Impairment: No Limitations Hearing Ability: Normal Budget Assistant Required: No Beliefs That Will Affect Care: None marital status: Current Living Situation: Family Current Living Situation Comment: current occupational status: unemployed Feels Safe at Home: Yes Safety Concerns: Feels Safe At This Time Childhood Exposure to Second-Hand Smoke: Yes caffeine: Yes Dental Care, Regularly: Yes Physical Activity Frequency: Does not Exercise Seatbelt Use: always Sunscreen Use: Yes Assistive Devices: None Review of Systems Review of Systems: 12 point review of systems negative exce pt for otherwise indicated. Physical Exam Constitutional: well developed and well nourished; no acute distress Eyes: + anicteric sclerae; pupils not irregula r Respiratory: normal respiratory effort; no respiratory distress, does not use accessory muscles and no cough Cardiovascular: well perfused Gastrointestinal (Abdomen): Inspection/Auscultation: abdomen normal to inspection; abdomen not distended Musculoskeletal: Extremities: extremities normal to inspection Skin: normal turgor; no rashes and no lesions Neurologic: moves all extremities and awake Psychiatric: Orientation: alert and oriented x 3 Results & Data Vital Signs (Past 12 Hours) Vital Signs Temp Pulse Resp BP Pulse Ox O2 Del Method 09/21/24 08:00 Room Air 09/21/24 07:23 36.8 C 93 H 16 132/80 97 Room Air 09/20/24 23:00 36.3 C L 88 18 180/118 H 99 Room Air 09/20/24 22:00 78 20 182/101 H 98 Room Air PG Care Time/CCT Total # of Minutes Spent Total Time Spent with Patient: Total time spent is greater than 50% in coordination of care (as documented) at patient's floor/unit and/or counseling patient: Coding Level of Care Code 40882 IN/OBS CONSULT LVL 4,60M Diagnoses Hydronephrosis with ureteral calculus N13.2 Acute right flank pain R10.9
[2024-09-21] MEDS: PHENAZOPYRIDINE HCL 200 MG TAB PO PRN (12:51)
--- NOTE | 2024-09-21 14:36 | Hospitalist Progress Note ---
Date of Service September 21, 2024 Assessment & Plan (1) Acute right flank pain: Plan: 49yo F with severe pain 2/2 obstructive nephrolithiasis admitted for pain control and urology consult for pain management Obstructing nephrolithiasis CTA/P with 2 discrete stones of the right ureter proximal to the UVJ, 5 mm and 4 mm with moderate right-sided hydro -continue IVF, Flomax, Pyridium Seen by urology this morning. Recommend to continue with Flomax, Toradol, Tylenol and add Pyridium today. If she is unable to manage without IV analgesia over the next day then keep n.p.o. for stent placement possibly tomorrow No DEBORAH No UTI Anxiety/Depression/Insomnia - Venlafaxine 150 qAM - Ambien nightly 12.5mg continued (pt reports she takes this regularly) Semaglutide - Took last week, does not remember the day. Held this as part of preop. Continue to hold this Admission and Anticipated Discharge Date Admission Date: September 20, 2024 Subjective Seen at the bedside. Endorses fatigue. Endorses ongoing 8/10 pain, slightly more tolerable than yesterday. No fever overnight. Did have a discussion regarding operative intervention versus medical management with urology this morning, will continue medical management at this time and reassess in the a.m. she does not have evidence of UTI or DEBORAH fortunately, but reports she also feels very fatigued and continues to have pain not adequately controlled Physical Exam Physical Exam: General: A&Ox3. NAD. Cooperative.somnolent. Appears uncomfortable, but slightly less low than evening prior HEENT: Atraumatic, normocephalic. Vision/hearing intact Pulm: CTAB A&P. -wheezes, -rales, -rhonchi. Symmetrical chest rise. No increased work of breathing. No respiratory distress. Cardiac: RRR, -mrg. Radial pulses intact and symmetrical. Abdominal: R flank pain. nondistended, soft. BS present. Results & Data Results & Data Vital Signs (Past 12 Hours) Vital Signs Temp Pulse Resp BP Pulse Ox O2 Del Method 09/21/24 08:00 Room Air 09/21/24 07:23 36.8 C 93 H 16 132/80 97 Room Air PG Care Time/CCT Total # of Minutes Spent Total Time Spent with Patient: Total time spent is greater than 50% in coordination of care (as documented) at patient's floor/unit and/or counseling patient: Coding Level of Care Code 54819 SUB INP/OBS CARE 09/27MIN Diagnoses Acute right flank pain R10.9
[2024-09-21] MEDS: HYDROmorphone INJ 0.5 MG/0.5 ML SYR IV PRN (15:53)
[2024-09-21] MEDS: ACETAMINOPHEN 325 MG TAB PO PRN (18:36)
[2024-09-21] MEDS: NSS + 20MEQ KCL 20 MEQ/1,000 ML BAG IV SCH (19:21)
[2024-09-21 20:45] VITALS: PULSE 91
[2024-09-22 07:14] LABS: Basophils # (auto) 0.04 K/uL (0.00-0.20); Basophils % (auto) 0.7 %; Eosinophils # (auto) 0.08 K/uL (0.00-0.50); Eosinophils % (auto) 1.5 %; Hematocrit (blood only) 29.4 % (37.0-47.0); Hemoglobin 9.7 g/dl (12.0-16.0); Immature Granulocytes # (auto) 0.01 K/uL (0.01-0.20); Immature Granulocytes % (auto) 0.2 %; Lymphocytes # (auto) 2.33 K/uL (1.20-3.40); Lymphocytes % (auto) 43.2 %; Mean Corpuscular Hemoglobin 27.6 pg (25.0-34.0); Mean Corpuscular Volume 83.8 fL (80.0-100.0); Mean Platelet Volume 9.2 fL (9.4-12.4); Monocytes # (auto) 0.28 K/uL (0.11-0.59); Monocytes % (auto) 5.2 %; Neutrophils # (auto) 2.65 K/uL (1.40-6.50); Neutrophils % (auto) 49.2 %; Platelet Count 237 K/uL (130-400); RDW Coefficient of Variation 13.8 % (11.5-14.5); Red Blood Count 3.51 M/uL (4.20-5.40); White Blood Count 5.39 K/ul (4.8-10.8)
[2024-09-22 07:31] LABS: BUN Creatinine Ratio 5.8 (10-20); Creatinine Clr Calc Pharmacy 75.8 ml/min; Potassium 4.1 mmol/L (3.5-5.1)
[2024-09-22 07:53] VITALS: BP 153/87; RESP 19; TEMP 98.1; O2SAT 98
[2024-09-22] MEDS: oxyCODONE HCL IR 5 MG TAB (IMMEDIATE RELEASE) PO PRN (13:37)
--- NOTE | 2024-09-22 14:09 | Urology Progress Note ---
Date of Service September 22, 2024 Assessment & Plan (1) Hydronephrosis with ureteral calculus: Plan Follow-up for right ureteral calculi Afebrile and hemodynamically stable Labs show no leukocytosis and normal renal function Urine culture from 09/20 grew Gardnerella vaginalis and she is on metronidazole She does report passing a small stone which was sent for analysis Patient did have breakfast this morning No plan for intervention today Patient is currently scheduled for outpatient stone treatment on Sunday09/26/2024 If pain and nausea can be controlled on oral medications, she could be discharged home with plans for outpatient management as scheduled If she is unable to manage without IV medications, would recommend NPO at midnight for reassessment in the morning Urology will follow along, please call with any questions/concerns Admission and Anticipated Discharge Date Admission Date: September 20, 2024 Subjective Patient seen at bedside today Awake and resting in bed on arrival No acute distress She does report passing a small stone- was sent for analysis Voiding without issue Denies significant pain No fevers Review of Systems Constitutional: as per Subjective / HPI Genitourinary: as per Subjective / HPI Physical Exam Constitutional: no acute distress Respiratory: no respiratory distress and no labored breathing Neurologic: moves all extremities and awake Psychiatric: A+Ox3, euthymic affect Results & Data Vital Signs (Past 12 Hours) Vital Signs Temp Pulse Resp BP Pulse Ox O2 Del Method 09/22/24 07:52 36.7 C 91 H 19 153/87 H 98 Room Air PG Care Time/CCT Total # of Minutes Spent Total Time Spent with Patient: Total time spent is greater than 50% in coordination of care (as documented) at patient's floor/unit and/or counseling patient: Coding Level of Care Code 75089 SUB INP/OBS CARE 2/35MIN Diagnoses Hydronephrosis with ureteral calculus N13.2
--- NOTE | 2024-09-22 14:26 | Discharge Summary ---
Discharge Summary Date of Service September 22, 2024 Principal Dx & Hospital Course #1 = Principal Diagnosis (1) Acute right flank pain: 49yo F with severe pain 2/2 obstructive nephrolithiasis admitted for pain control and urology consult for pain management. CT: There are 2 discrete stones in the distal right ureter, just proximal to the UVJ, measuring up to 5 mm, and 4 mm, craniocaudal, respectively, resulting in moderate right-sided hydroureteronephrosis. She was admitted and placed on IV fluids, Tylenol, Toradol, Pyridium, Flomax increased to twice daily, and breakthrough hydrocodone versus oxycodone. Urology was consulted did not recommend urgent intervention and continued monitoring. She did pass one of the [address] during admission, continues to have some spasm and pain although improved but not resolved. Was seen by reevaluation for urology who recommended follow-up as outpatient the following Sunday for definitive management if still not progressing. Risk/benefits of ongoing inpatient monitoring were discussed with the patient and she is agreeable to discharge home with multimodal pain control and follow- up with urology as outpatient, with return precautions for any worsening. UA was obtained on admission this speciated for high colony counts of Gardnerella. This may represent sharif given high colony counts with obstructive stone she was discharged to complete treatment with Flagyl 500 mg twice daily for 7 days. To do as outpatient: 1 continue multimodal pain control. Instructed to alternate between Tylenol 500 mg every 4 hours, ibuprofen 400 mg every 4 hours. May also continue Pyridium 3 times daily, and was given oxycodone every 8 hours 5 mg for breakthrough pain. 2. Continue Flomax twice daily 3. Complete 7 days of treatment with Flagyl 500 mg twice daily for Gardnerella infection, UCx did speciate for this with high colony counts Admission HPI Per Admitting Provider Lo is a 49-year-old female with past medical history of migraine, insomnia, B12 deficiency, GERD, hyperlipidemia, hypothyroidism who presents to the ER with right flank pain. Lo reports she felt nausea, with pain, and dizziness last . She reports was seen evaluated and was supposed to have her kidney stones removed a week or so ago, but the procedure had to be cancelled due to confusion around the UA and had the procedure cancelled at the last minute. She reports she was able to contact her Urologist and was rescheduled for this coming sunday, but has had increasing nausea and pain which is no longer tolerable. 'Kidneys have been hurting horribly.' Came to give a urine sample, but had too much pain and came into the ER. Increasing right flank pain over 24 hours. Feels similar to prior episodes of kidney stones. No fever chills or sweats. No lightheadedness dizziness. No shortness of breath. No chest pain. No abdominal pain. Medical History: Reviewed Medications: Reviewed. Sulfa, penicillin Surgical History: Reviewed Family history: Reviewed Allergies: Reviewed Social History: Reviewed. No tobacco or etoh. Code Status: Ful Discharge Exam General: A&Ox3. NAD. Cooperative. HEENT: Atraumatic, normocephalic. Vision/hearing intact Pulm: CTAB A&P. -wheezes, -rales, -rhonchi. Symmetrical chest rise. No increased work of breathing. No respiratory distress. Cardiac: RRR, -mrg. Radial pulses intact and symmetrical. Abdominal: No rebound/guarding. Mild right flank tenderness to palpation, no rebound/guarding. Abdomen is not rigid Discharge Plan Discharge Items Patient Disposition: Home - Self-Care Reason For Visit: NEPHROLITHIASIS Discharge Diagnosis: Nephrolithiasis Activity: As commented below Non-emergency contact: Primary Care Provider and Urologist Call non-emergency contact if: you have any medication questions Follow-up/Referrals: Amalia Naidu PA-C [Primary Care Provider] - (PATIENT WILL CALL PCP FOR A HOSPITAL FOLLOW UP VISIT 7-10 DAYS ) Diet: Regular Addtl Attending Provider Instructions: You are seen in the hospital for flank pain due to to kidney stones. You passed one of the stones during admission.. You may pass the other stone, please check all urine for evidence of stone passage. You have been scheduled for follow-up with urology on Sunday if your stone does not pass before then. Your urine culture was positive for Gardnerella. This is typically a normal bacteria that is part of vaginal sharif however you did have very high colony counts with a kidney stone associated so have been prescribed an antibiotic. Please take an antibiotic, Flagyl 500 mg by mouth twice daily for 7 days. Do not drink while on this antibiotic. Please alternate between Tylenol 500-650 mg every 4 hours and ibuprofen 4 mg every 4 hours as needed for pain control. Please take Pyridium 200 mg 3 times daily for pain. Please take Flomax 0.4 mg by mouth twice daily to help facilitate stone passage Please drink plenty of water to stay hydrated and facilitate stone passage You have been prescribed oxycodone. This is a narcotic medication with risks of addiction, sedation, and respiratory suppression. You may take oxycodone 5 mg every 8 hours as needed for pain not controlled with the previously mentioned Tylenol/ibuprofen/Azo. Do not drive or operate machinery while on this medication If you develop any new or worsening symptoms including fever, chills, sweats, chest pain, chest pressure, difficulty breathing, uncontrolled nausea/vomiting, rash, wheezing, passing out or nearly passing out, bleeding, black/bloody bowel movements, or other new or concerning symptoms please call your primary care physician, or call 911 for re-evaluation in the emergency department if you are very concerned. Pending Studies at Discharge: No Stand-Alone Forms: [facility] [employer], Work/School Release, Smoking Cessation Medications and DC Order Prescriptions: New phenazopyridine [Pyridium] 200 mg Tablet 200 mg PO TID PRN (Reason: flank pain or dysuria) Qty: 21 0RF metronidazole 500 mg Tablet 500 mg PO BID 7 Days Qty: 14 0RF tamsulosin 0.4 mg Capsule 0.4 mg PO BID Qty: 14 0RF oxycodone 5 mg Tablet 5 mg PO Q8H PRN (Reason: breakthrough pain) Qty: 15 0RF Continued venlafaxine 150 mg capsule,extended release 24hr 150 mg PO QAM zolpidem 12.5 mg tablet,ext release multiphase 12.5 mg PO HS PRN (Reason: Sleep) alprazolam 0.5 mg tablet 0.5 mg PO DAILY PRN (Reason: Anxiety) ondansetron 4 mg tablet,disintegrating 4 mg PO UD PRN (Reason: Nausea And Vomiting) ibuprofen 200 mg Tablet 400 mg PO Q6H PRN (Reason: Pain) Held semaglutide (weight loss) 0.25 mg/0.5 mL Pen Injector 0.5 mg SUBCUT Q7D Hold Instructions: Resume on 09/23/24. Resume when discussed with PCP Rx Instructions: TUESDAYS Discharge Orders: Discharge Order (Routine); Ordered 01/20/25 Ordered By: Armani Ervin Admission Data Admit Date/Time: 09/20/24 21:13 Attending Provider: Armani Ervin Admit Provider: Deep Mayfield Primary Care Provider: Amalia Naidu Other Providers: Deep Mayfield; Nehemiah Anne Other Interventions: Discharge Summary Assessment (RN) Last Done: 09/22/24 14:36 Hospital Stay Data Consultations 09/20/24 18:59 ED Decision to Admit Stat 09/20/24 19:13 Consult Urology Routine Diagnostic Imagining Performed 09/20/24 16:30 CT abd pelvis wo con Stat Discharge Instructions Given to Patient (Per Discharging Provider) You are seen in the hospital for flank pain due to to kidney stones. You passed one of the stones during admission.. You may pass the other stone, please check all urine for evidence of stone passage. You have been scheduled for follow-up with urology on Sunday if your stone does not pass before then. Your urine culture was positive for Gardnerella. This is typically a normal bacteria that is part of vaginal sharif however you did have very high colony counts with a kidney stone associated so have been prescribed an antibiotic. Please take an antibiotic, Flagyl 500 mg by mouth twice daily for 7 days. Do not drink while on this antibiotic. Please alternate between Tylenol 500-650 mg every 4 hours and ibuprofen 4 mg every 4 hours as needed for pain control. Please take Pyridium 200 mg 3 times daily for pain. Please take Flomax 0.4 mg by mouth twice daily to help facilitate stone passage Please drink plenty of water to stay hydrated and facilitate stone passage You have been prescribed oxycodone. This is a narcotic medication with risks of addiction, sedation, and respiratory suppression. You may take oxycodone 5 mg every 8 hours as needed for pain not controlled with the previously mentioned Tylenol/ibuprofen/Azo. Do not drive or operate machinery while on this medication If you develop any new or worsening symptoms including fever, chills, sweats, chest pain, chest pressure, difficulty breathing, uncontrolled nausea/vomiting, rash, wheezing, passing out or nearly passing out, bleeding, black/bloody bowel movements, or other new or concerning symptoms please call your primary care physician, or call 911 for re-evaluation in the emergency department if you are very concerned. Total Time Total Time Spent Total Time Spent (In Minutes): Time spend day of discharge 45 minutes including direct patient care, documentation, review of labs and images, and coordination of care. Coding Level of Care Code 66054 INP/OBS DISCH >30 MIN Diagnoses Acute right flank pain R10.9
[2024-09-22] MEDS: metroNIDAZOLE 500 MG TAB PO ONE (15:22)
[2024-09-22] MEDS ORDERED: PANTOprazole 40 MG TAB PO SCH (21:00)
[2024-09-22] MEDS ORDERED: FAMOTIDINE 20 MG TAB PO SCH (21:00)
[2024-09-22] MEDS ORDERED: metroNIDAZOLE 500 MG TAB PO SCH (21:00)
== END 2024-09-22 15:45 | disposition home or self-care (01) | DRG 694 ==
LOC: SUATTDRO → ED 15:15 → 3N 21:13 → SUATTDRO 21:13 → 3N 22:13